=== PATIENT | female | born 1945 | race Caucasian/White ===

== ENCOUNTER 2018-01-25 13:19 | Emergency (ER) | payer MEDICARE, BC ==
[2018-01-25 14:14] VITALS: BP 148/87
--- NOTE | 2018-01-25 21:29 | UC ---
FLU HPI - HPI Summary HPI Summary: 72 y/o female w c/o 1 weeks of cough- constant, non productive, mild SANTIAGO, no ear pain, no recent Abx use, no lightheaded, dizziness, L sided throat pain, and sinus pressure. no fever, chills. no GI symptoms. - History of Current Complaint Chief Complaint: UCGeneralIllness Stated Complaint: STIFF NECK SORE THROAT Time Seen by Provider: 01/25/18 14:21 Hx Obtained From: Patient Hx Last Menstrual Period: N/A ?: No Onset/Duration: Sudden Onset, Lasting Days Severity Currently: Mild Severity Initially: Moderate Pain Intensity: 5 Pain Scale Used: 0-10 Numeric Associated Signs & Symptoms: Positive: Cough, Sore Throat, Nasal Congestion, Headache - Allergy/Home Medications Allergies/Adverse Reactions: Allergies Allergy/AdvReac Type Severity Reaction Status Date / Time lactose Allergy Diarrhea Verified 01/25/18 14:14 Penicillins Allergy Hives Verified 01/25/18 14:14 Sulfa (Sulfonamide Allergy GI Upset Verified 01/25/18 14:14 Antibiotics) PMH/Surg Hx/FS Hx/Imm Hx Previously Healthy: Yes - HTN, BP elevated today, will discuss with PCP - Surgical History Surgical History: Yes Surgery Procedure, Year, and Place: apendectomy, hysterectomy - Family History Known Family History: Negative: Seizure Disorder - Social History Alcohol Use: None Substance Use Type: None Smoking Status (MU): Never Smoked Tobacco - Immunization History Most Recent Tetanus Shot: unk Review of Systems Constitutional: Fatigue ENT: Sore Throat, Nasal Discharge, Sinus Congestion, Sinus Pain/Tenderness Respiratory: Cough Is Patient Immunocompromised?: No All Other Systems Reviewed And Are Negative: Yes Physical Exam Triage Information Reviewed: Yes Appearance: No Pain Distress, Well-Nourished, Ill-Appearing - mild Vital Signs: Initial Vital Signs Temp 97.8 F 01/25/18 14:11 Pulse 91 01/25/18 14:11 Resp 20 01/25/18 14:11 BP 148/87 01/25/18 14:11 Pulse Ox 98 01/25/18 14:11 Vital Signs Reviewed: Yes Eyes: Positive: Conjunctiva Clear ENT: Positive: Pharyngeal erythema - minimal, no exudates, Nasal congestion, TMs normal, Sinus tenderness - frontal, Uvula midline Neck: Positive: Supple, Nontender, Enlarged Nodes @ - submand, mild Respiratory: Positive: Chest non-tender, Lungs clear, Normal breath sounds, No respiratory distress, No accessory muscle use Cardiovascular: Positive: RRR Neurological Exam: Normal Psychological Exam: Normal Flu Course/Dx - Course Course Of Treatment: - Antibiotics as directed. Sinusitits. - increase fluid intake. - Increase rest. - follow up with primary physician within 2 days if no benefit. - GO to ER with increased headache, lightheadedness, increased pain. - Motrin/ ibuprofen as needed for neck pain, headache - Differential Dx/Diagnosis Differential Diagnosis/HQI/PQRI: Influenza Provider Diagnoses: sinusitis Discharge - Sign-Out/Discharge Documenting (check all that apply): Patient Departure All imaging exams completed and their final reports reviewed: No Studies - Discharge Plan Condition: Good Disposition: HOME Prescriptions: Azithromycin TAB* [Zithromax TAB (Z-UZIEL) 250 mg #6 tabs] 2 tab PO .TODAY, THEN 1 DAILY #1 uziel Patient Education Materials: Sinusitis (ED) Referrals: Ramiro Seymour DO [Primary Care Provider] - Additional Instructions: - Antibiotics as directed - increase fluid intake - Increase rest - follow up with primary physician within 2 days if no benefit - GO to ER with increased headache, lightheadedness, increased pain - Motrin/ ibuprofen as needed for neck pain, headache - Billing Disposition and Condition Condition: GOOD Disposition: Home - Attestation Statements Provider Attestation: I was available for consult. This patient was seen by the ELDA. The patient was not presented to, seen by, or examined by me. -Mireya
== END 2018-01-25 14:50 | disposition home or self-care (01) ==
LOC: UCEAST 13:19
DX: J32.9 Chronic sinusitis, unspecified (principal); Z88.0 Allergy status to penicillin; Z88.2 Allergy status to sulfonamides
CPT/HCPCS: 99212; G0463

== ENCOUNTER 2018-06-14 09:38 | Observation (INO) | payer MEDICARE ==
[2018-06-14] MEDS ORDERED: Aspirin 81 mg CHEW TAB* 81 MG TAB.CHEW PO ONE (09:47)
--- OUTSIDE RECORDS SUMMARY | 2018-06-14 09:49 | XMS REPORT | Continuity of Care Document ---
:1945 External Reference #:[id number] Author Name Alan James DO Address [address] [place] [address] Care Team Providers Name Role Phone Ramiro Seymour DO Care Team Information Activity Aid Unavailable Ramiro Seymour DO Primary Care Physician Unavailable Payers Date Identification Numbers Payment Provider Subscriber Policy Number: [id number] Medicare Ray Gray PayID: [id number] [facility] [address] [place] [address] Policy Number: [id number] [facility] Ray Gray PayID: [id number] [address] [address] [place] [address] Advance Directives Description No Information Available Problems Date Description Provider Status Onset: 04/02/2018 History of polyp of colon Laura Grissom PA-C Active Onset: 04/02/2018 Hemorrhage of rectum and anus Laura Grissom PA-C Active Onset: 04/02/2018 Tenderness of epigastrium Laura Grissom PA-C Active Onset: 04/02/2018 Gastro-esophageal reflux disease ASHOK Sharif Active with esophagitis Family History Description No Information Available Social History Type Date Description Comments Sex Unknown ETOH Use Drinks 1 Alcoholic Beverage Per Week Tobacco Use Start: Unknown Patient has never smoked Smoking Status Reviewed: 04/02/18 Patient has never smoked Allergies, Adverse Reactions, Alerts Date Description Reaction Status Severity Comments 11/24/2015 Penicillin Active 11/24/2015 Sulfa Antibiotics Active 11/24/2015 Lactose (Intolerance) Active Medications Medication Date Status Form Strength Qnty SIG Indications Ordering Provider Peg-3350/Electr 04/02/ Active Solution 236gm 4000m by mouth as K62.5 Alan olytes 2018 Rec l directed Erika, DO Amitriptyline 11/23/ Active Tablets 25mg 30tab Take One R10.13 Vicky HCL 2016 s Tablet By [place], Mouth AT [facility] Bedtime Fosamax 11/09/ Active Tablets 70mg Weekly Unknown 2015 Dexilant 11/09/ Active Capsules 60mg Twice Daily Unknown 2015 DR Rodrigues 11/09/ Active Tablets 10mcg See Unknown 2015 Instructions Patanol 11/09/ Active Solution 0.1% Every Day Unknown 2015 Ranitidine HCL 11/09/ Active Tablets 300mg Bedtime Unknown 2015 Restasis 11/09/ Active Emulsion 0.05% Twice Daily Unknown 2015 Colyte With 04/02/ Hx Solution 240gm 4000m by mouth as K62.5 Alan Flavor Packs 2018 - Rec l directed Erika, 2017 Sucralfate 11/23/ Hx Tablets 1gm 120ta 1 tab by R10.13 Vicky 2016 - bs mouth four [place], 04/02/ times a day [facility] 2018 before meals and at at bedtime Ciprofloxacin 11/09/ Hx Tablets 500mg 20tab Twice Daily Unknown HCL 2016 - s 2017 Flagyl 11/09/ Hx Tablets 500mg 30tab Three Times Unknown 2016 - s Daily 2017 Immunizations Description No Information Available Vital Signs Date Vital Result Comment 04/02/2018 10:13am Height 64 inches 5'4" Weight 196.00 lb BP Systolic 147 mmHg BP Diastolic 81 mmHg Heart Rate 100 /min BMI (Body Mass Index) 33.6 kg/m2 12/23/2015 1:02pm Height 64 inches 5'4" Weight 175.00 lb BP Systolic 132 mmHg BP Diastolic 82 mmHg Heart Rate 96 /min BMI (Body Mass Index) 30.0 kg/m2 11/24/2015 2:55pm Height 64 inches 5'4" Weight 177.00 lb BMI (Body Mass Index) 30.4 kg/m2 Results Test Date Facility Test Result H/L Range Note Laboratory test 05/22/2018 [facility] [place]ot[place] SEE RESULT 1, 2 finding BELOW Laboratory test 05/22/2018 [facility] Surgical SEE RESULT 3, 4 finding Pathology BELOW Laboratory 11/10/2015 N2N/CCD Import Absolute 0.1 10^3/ul 0-0.2 Studies Basophils (auto) Absolute Eosinophils (auto) 0.1 10^3/ul 0-0.6 Absolute Lymphocytes (auto) 1.5 10^3/ul 1.0-4.8 Absolute Monocytes (auto) 0.8 10^3/ul 0-0.8 Absolute Neutrophils (auto) 5.8 10^3/ul 1.5-7.7 Alanine Aminotransferase (Alt/SGPT) 17 U/L 7-52 Albumin 4.7 g/dL 3.2-5.2 Albumin/Globulin Ratio 1.6 1-3 Alkaline Phosphatase 80 U/L 34-104 Anion Gap 8 mmol/L 2-11 Aspartate Amino Transf (Ast/Sgot) 16 U/L 13-39 BUN/Creatinine Ratio 22.4 High 8-20 Basophils (%) (Auto) 0.9 % 0-2 Blood Urea Nitrogen 13 mg/dL 6-24 C-Reactive Protein 6.43 mg/L High 0-5.00 Calcium Level 9.3 mg/dL 8.6-10.3 Carbon Dioxide Level 26 mmol/L 22-32 Chloride Level 103 mmol/L 101-111 Creatinine 0.58 mg/dL 0.51-0.95 Eosinophils (%) (Auto) 1.1 % 0-6 Estimated GFR () 131.8 Estimated GFR (Non- 102.5 Globulin 2.9 g/dL 2-4 Glucose Level 95 mg/dL 70-100 Hematocrit 45 % 35-47 Hemoglobin 15.4 g/dL 12.0-16.0 Lactic Acid Level 0.9 mmol/L 0.5-2.0 Lipase 14 U/L 11.0-82.0 Lymphocytes (%) (Auto) 18.5 % Low 25-47 Mean Corpuscular Hemoglobin 30 pg 27-31 Mean Corpuscular Hemoglobin Concent 34 g/dL 31-36 Mean Corpuscular Volume 87 fL 80-97 Mean Platelet Volume 8 um3 7.4-10.4 Monocytes (%) (Auto) 9.6 % High 1-9 Neutrophils (%) (Auto) 69.9 % 38-83 Nucleated RBC Absolute Count (auto) 0 10^3/ul Nucleated Red Blood Cells % 0 Platelet Count 340 10^3/ul 150-450 Potassium Level 3.7 mmol/L 3.5-5.0 Red Blood Count 5.20 10^6/ul 4.0-5.4 Red Cell Distribution Width 14 % 10.5-15 Sodium Level 137 mmol/L 133-145 Total Bilirubin 0.50 mg/dL 0.2-1.0 Total Protein 7.6 g/dL 6.4-8.9 White Blood Count 8.3 10^3/ul 3.5-10.8 Laboratory Studies 11/10/2015 N2N/CCD Import Urine Specific 1.018 1.010- 1.030 [place] Urine pH 6.0 5-9 Xray 11/10/2015 [facility] [place] Abd/Pel W <pending> CBC W/Auto 11/02/2015 [facility] White Blood Count Ser <pending> Differential(!) Auto CNT RBC Red Blood Count <pending> Hemoglobin Blood <pending> Hematocrit <pending> MCV (Corpuscular Volume) <pending> MCH (Corpuscular Hemoglobin) <pending> MCHC (Corpuscular Hemog Conc) <pending> RDW <pending> Platelet Count Blood Auto CNT <pending> MPV <pending> Lymph% <pending> [place]% <pending> Neutrophil % <pending> Absolute Lymphocytes <pending> Absolute Monocytes <pending> Absolute Neutrophils <pending> CMP(!) 11/02/2015 [facility] Sodium(!) <pending> Potassium(!) <pending> Chloride Serum/Plasma(!) <pending> Carbon Dioxide Ser/Plasm(!) <pending> BUN - Urea Nitrogen(!) <pending> Calcium Ser/Plasma Mass/Vol(!) <pending> Creatinine Serum Mass/Vol(!) <pending> Glucose Serum(!) <pending> Uric Acid Ser/Plas Mass/Vol(!) <pending> BUN/Creatinine Ratio(!) <pending> Albumin Serum/Plasma(!) <pending> Alkaline Phosphatase(!) <pending> Bilirubin Total Mass/Vol(!) <pending> Ast - Sgot <pending> Alt - SGPT <pending> Protein Total <pending> Laboratory test 11/02/2015 [facility] Magnesium Ser/Plasma <pending> finding Mass/Vol TSH Thyroid Stim Hormone(!) <pending> Laboratory Studies 11/02/2015 N2N/CCD Import 25-Hydroxy Vitamin 16.4 ng/mL Low 30-50 D Total Folate 20.00 ng/mL Immunoglobulin A 169 mg/dL Magnesium Level 2.0 mg/dL 1.9-2.7 Thyroid Stimulating Hormone (TSH) 1.75 mcIU/mL 0.34-5.60 Vitamin B12 Level 437 pg/mL 180-914 Laboratory test 03/03/2015 [facility] Dermatopathology Report < pending> finding 1 [id number] SEE RESULT BELOW Name: RAY GRAY : [address]: Alan James DO Acct: [id number] Unit: [id number] AGE: 73 Location: [facility] Re05/22/18 SEX: F Status: DEP REF SPEC: [id number] ERIC: 05/22/18-[address] [facility] [address]: Alan James DO REQ: [id number] RECD: 05/22/18 STATUS: BLU WEBER DR: Ramiro Seymour DO _ SOURCE: GAS ANTRUM SPDESC: ORDERED: Kory COMMENTS: [id number] Procedure Result Reported Site Clotest Final 05/23/18- 0753 ML Clotest Negative * ML - Main Lab . END OF REPORT DEPARTMENT OF PATHOLOGY, [address] [place] [address] Mik Duckworth M.D. Director [facility] # [id number] SEE RESULT BELOW Name: RAY GRAY : [address]: Alan James DO Acct: [id number] Unit: [id number] AGE: 73 Location: [facility] Re05/22/18 SEX: F Status: DEP REF SPEC: [id number] ERIC: 05/22/18-[address] [facility] [address]: Alan James DO REQ: [id number] RECD: 05/22/18 STATUS: BLU WEBER DR: Ramiro Seymour DO _ SOURCE: GAS ANTRUM SPDES: ORDERED: Clotest COMMENTS: [id number] Procedure Result Reported Site Clotest Final 05/23/18- 0753 ML Clotest Negative * ML - Main Lab . END OF REPORT DEPARTMENT OF PATHOLOGY, [address] [place] [address] Mik Duckworth M.D. Director [facility] # [id number] SEE RESULT BELOW Name: RAY GRAY : [address]: Alan James DO Acct: [id number] Unit: [id number] AGE: 73 Location: [facility] Re05/22/18 SEX: F Status: DEP REF SPEC: [id number] ERIC: 05/22/18-[address]: Alan James DO REQ: [id number] RECD: 05/22/18 STATUS: ADRIEL WEBER DR: Ramiro Seymour DO _ ORDERED: LEVEL 4/3 COMMENTS: [id number] FINAL DIAGNOSIS 1. Esophagus, distal, biopsy: -- Benign squamous and columnar-type mucosa with chronic inflammation. -- Intestinal metaplasia is absent. -- Dysplasia is absent. 2. Colon, transverse, biopsy: -- Benign colonic mucosa with surface hyperplastic change. 3. Colon, sigmoid, biopsy: -- Tubular adenomas. -- No high grade dysplasia or malignancy. CLINICAL HISTORY Gastroesophageal reflux disease/ hematochezia POST-OPERATIVE DIAGNOSIS EGD: esophagus - gastroesophageal junction less than 1 cm variable biopsy; gastric - normal biopsy NOMAN test; duodenum - normal; colonoscopy: to cecum; good prep; 1 transverse cold snare; 3 sigmoid 2 x cold snare CONTINUED ON NEXT PAGE DEPARTMENT OF PATHOLOGY, [address] [place] [address] Mik Duckworth M.D. Director [facility] # [id number] RUN DATE: 05/23/18 [facility] LAB LIVE PAGE 2 Patient: RAY GRAY [id number] (Continued) GROSS DESCRIPTION (Continued) GROSS DESCRIPTION 1. The specimen is received in formalin labeled, Distal Esophagus Biopsies , and consists of two allen-white irregular soft tissue fragments measuring 0.4 x 0.2 x 0.1 cm and 0.7 x 0.2 x 0.1 cm which are submitted entirely in one cassette. 2. The specimen is received in formalin labeled, Biopsy Transverse Colon Polyp, and consists of a 0.8 by up to 0.3 x 0.1 cm allen irregular soft tissue fragment which is submitted entirely in one cassette. 3. The specimen is received in formalin labeled, Sigmoid Colon Polyps, and consists of three allen-pink polypoid soft tissue fragments aggregating 0.7 x 0.3 x 0.2 cm which are submitted entirely in one cassette. Signed by and Reported on: Emma Sparrow MD 05/23/18 1133 END OF REPORT DEPARTMENT OF PATHOLOGY, [address] [place] [address] Mik Duckworth M.D. Director [facility] # [id number] SEE RESULT BELOW Name: RAY GRAY : [address]: Alan James DO Acct: [id number] Unit: [id number] AGE: 73 Location: [facility] Re05/22/18 SEX: F Status: DEP REF SPEC: [id number] ERIC: 05/22/18-[address]: Alan James DO REQ: [id number] RECD: 05/22/182865 STATUS: ADRIEL WEBER DR: Ramiro Seymour DO _ ORDERED: LEVEL 4/3 COMMENTS: [id number] FINAL DIAGNOSIS 1. Esophagus, distal, biopsy: -- Benign squamous and columnar-type mucosa with chronic inflammation. -- Intestinal metaplasia is absent. -- Dysplasia is absent. 2. Colon, transverse, biopsy: -- Benign colonic mucosa with surface hyperplastic change. 3. Colon, sigmoid, biopsy: -- Tubular adenomas. -- No high grade dysplasia or malignancy. CLINICAL HISTORY Gastroesophageal reflux disease/ hematochezia POST-OPERATIVE DIAGNOSIS EGD: esophagus - gastroesophageal junction less than 1 cm variable biopsy; gastric - normal biopsy NOMAN test; duodenum - normal; colonoscopy: to cecum; good prep; 1 transverse cold snare; 3 sigmoid 2 x cold snare CONTINUED ON NEXT PAGE DEPARTMENT OF PATHOLOGY, [address] [place] [address] Mik Duckworth M.D. Director [facility] # [id number] RUN DATE: 05/23/18 [facility] LAB LIVE PAGE 2 Patient: RAY GRAY [id number] (Continued) GROSS DESCRIPTION (Continued) GROSS DESCRIPTION 1. The specimen is received in formalin labeled, Distal Esophagus Biopsies , and consists of two allen-white irregular soft tissue fragments measuring 0.4 x 0.2 x 0.1 cm and 0.7 x 0.2 x 0.1 cm which are submitted entirely in one cassette. 2. The specimen is received in formalin labeled, Biopsy Transverse Colon Polyp, and consists of a 0.8 by up to 0.3 x 0.1 cm allen irregular soft tissue fragment which is submitted entirely in one cassette. 3. The specimen is received in formalin labeled, Sigmoid Colon Polyps, and consists of three allen-pink polypoid soft tissue fragments aggregating 0.7 x 0.3 x 0.2 cm which are submitted entirely in one cassette. Signed by and Reported on: Emma Sparrow MD 05/23/18 1133 END OF REPORT DEPARTMENT OF PATHOLOGY, [address] [place] [address] Mik Duckworth M.D. 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 Reflux Plan of Treatment 04/02/2018 - MOHINDER Sharif-CK21.0 Gastro-esophageal reflux disease with peybxmwxrdxT98.9 Gastro-esophageal reflux disease without zquuijlajsmQ04.5 Hemorrhage of anus and rectumNew Medication:Peg-3350/Electrolytes 236 gm - by mouth as directedColyte With Flavor Packs 240 gm - by mouth as ebzvhezuE51.010 Personal history of colonic polyps
--- OUTSIDE RECORDS SUMMARY | 2018-06-14 09:49 | XMS REPORT | Continuity of Care Document ---
:1945 External Reference #:[id number] Author Name Alan James DO Address [address] [place] [address] Care Team Providers Name Role Phone Ramiro Seymour DO Care Team Information Rouge Presser Unavailable Ramiro Seymour DO Primary Care Physician Unavailable Payers Date Identification Numbers Payment Provider Subscriber Policy Number: [id number] Medicare Ray Gray PayID: [id number] [facility] [address] [place] [address] Policy Number: [id number] [facility] Ray Gray PayID: [id number] [address] [address] [place] [address] Advance Directives Description No Information Available Problems [...] R10.13 Vicky HCL 2016 s Tablet By [place], Mouth AT [facility] Bedtime Fosamax 11/09/ Active Tablets 70mg [...] R10.13 Vicky 2016 - bs mouth four [place], 04/02/ times a day [facility] 2018 before meals and at at [...] Result H/L Range Note Laboratory test 05/22/2018 [facility] Clotest SEE RESULT 1, 2 finding BELOW Laboratory test 05/22/2018 [facility] [place] Surgical SEE RESULT 3, 4 finding Pathology [...] N2N/CCD Import Urine Specific 1.018 1.010- 1.030 [place] Urine pH 6.0 5-9 Xray 11/10/2015 [facility] [place] CT Abd/Pel W <pending> CBC W/Auto 11/02/2015 [facility] White Blood Count Ser <pending> Differential(!) Auto CNT RBC Red Blood Count <pending> Hemoglobin Blood <pending> Hematocrit <pending> MCV (Corpuscular Volume) <pending> MCH (Corpuscular Hemoglobin) <pending> MCHC (Corpuscular Hemog Conc) <pending> RDW <pending> Platelet Count Blood Auto CNT <pending> MPV <pending> Lymph% <pending> [place]% <pending> Neutrophil % <pending> Absolute Lymphocytes <pending> [...] [facility] Dermat[facility] Report < pending> finding 1 [id number] SEE RESULT BELOW Name: RAY GRAY : [address]: Alan James DO Acct: [id number] Unit: [id number] AGE: 73 Location: [facility] Re05/22/18 SEX: F Status: DEP REF SPEC: [id number] ERIC: 05/22/18-[address] [facility] [address]: Alan James DO REQ: [id number] RECD: 05/22/18 STATUS: BLU WEBER DR: Ramiro Seymour DO _ SOURCE: GAS ANTRUM SPDESC: ORDERED: Kory COMMENTS: [id number] Procedure Result Reported Site Clotest Final 05/23/18- 0753 ML Clotest Negative * ML - Main Lab . END OF REPORT DEPARTMENT OF PATHOLOGY, [address] [place] [address] Mik Duckworth M.D. Director [facility] # [id number] SEE RESULT BELOW Name: RAY GRAY : [address]: Alan James DO Acct: [id number] Unit: [id number] AGE: 73 Location: [facility] Re05/22/18 SEX: F Status: DEP REF SPEC: [id number] ERIC: 05/22/18-[address] [facility] [address]: Alan James DO REQ: [id number] RECD: 05/22/18 STATUS: BLU WEBER DR: Ramiro Seymour DO _ SOURCE: GAS ANTRUM SPDES: ORDERED: Clotest COMMENTS: [id number] Procedure Result Reported Site Clotest Final 05/23/18- 0753 ML Clotest Negative * ML - Main Lab . END OF REPORT DEPARTMENT OF PATHOLOGY, [address] [place] [address] Mik Duckworth M.D. Director [facility] # [id number] SEE RESULT BELOW Name: RAY GRAY : [address]: Alan James DO Acct: [id number] Unit: [id number] AGE: 73 Location: [facility] Re05/22/18 SEX: F Status: DEP REF SPEC: [id number] ERIC: 05/22/18-[address]: Alan James DO REQ: [id number] RECD: 05/22/18 STATUS: ARDIEL WEBER DR: Ramiro Seymour DO _ ORDERED: LEVEL 4/3 COMMENTS: [id number] FINAL DIAGNOSIS 1. Esophagus, distal, biopsy: -- [...] CONTINUED ON NEXT PAGE DEPARTMENT OF PATHOLOGY, [address] [place] [address] Mik Duckworth M.D. Director [facility] # [id number] RUN DATE: 05/23/18 [facility] LAB LIVE PAGE 2 Patient: RAY GRAY [id number] (Continued) GROSS DESCRIPTION (Continued) GROSS DESCRIPTION 1. [...] 1133 END OF REPORT DEPARTMENT OF PATHOLOGY, [address] [place] [address] Mik Duckworth M.D. Director [facility] # [id number] SEE RESULT BELOW Name: RAY GRAY : [address]: Alan James DO Acct: [id number] Unit: [id number] AGE: 73 Location: [facility] Re05/22/18 SEX: F Status: DEP REF SPEC: [id number] ERIC: 05/22/18-[address]: Alan James DO REQ: [id number] RECD: 05/22/187943 STATUS: ADRIEL WEBER DR: Ramiro Seymour DO _ ORDERED: LEVEL 4/3 COMMENTS: [id number] FINAL DIAGNOSIS 1. Esophagus, distal, biopsy: -- [...] CONTINUED ON NEXT PAGE DEPARTMENT OF PATHOLOGY, [address] [place] [address] Mik Duckworth M.D. Director [facility] # [id number] RUN DATE: 05/23/18 [facility] LAB LIVE PAGE 2 Patient: RAY GRAY [id number] (Continued) GROSS DESCRIPTION (Continued) GROSS DESCRIPTION 1. [...] 1133 END OF REPORT DEPARTMENT OF PATHOLOGY, [address] [place] [address] Mik Duckworth M.D. 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 Reflux Plan of Treatment 04/02/2018 - MOHINDER Sharif-CK21.0 Gastro-esophageal reflux disease with nmdnkvqvhypP14.9 Gastro-esophageal reflux disease without orofugbnmlnL40.5 Hemorrhage of anus and rectumNew Medication:Peg-3350/Electrolytes 236 gm - by mouth as directedColyte With Flavor Packs 240 gm - by mouth as vnurkjqbG99.010 Personal history of colonic polyps
--- NOTE | 2018-06-14 09:59 | ED ---
HPI Chest Pain - HPI Summary HPI Summary: This pt is a 73 y/o female presenting to [facility] via EMS from home c/o palpitations and chest pressure today. Pt reports she was in the shower today when she felt her heart fluttering. She states that soon after she developed chest pressure, described like someone sitting on top of chest. Pt notes additionally her arm began to feel tingly and she began to feel lightheaded, and nauseous. She describes lightheadedness, like feeling of passing out. Currently she still has chest pressure, rated 5 or 6 out of 10 in severity and still feels lightheaded. Denies vomiting, diaphoresis, SOB. Pt was NOT given aspirin or nitroglycerin by EMS [employer]. She has never had this in the past. Denies any hx of cardiac disease. PMHx includes HTN. - History of Current Complaint Chief Complaint: EDChestPainROMI Time Seen by Provider: 06/14/18 09:46 Hx Obtained From: Patient Hx Last Menstrual Period: N/A Onset/Duration: Started Minutes Ago, Still Present Timing: Lasting Hours Current Severity: Moderate Pain Intensity: 6 Pain Scale Used: 0-10 Numeric Chest Pain Location: Diffuse Chest Pain Radiates: No Character: Pressure/Squeezing - Pressure Aggravating Factor(s): Nothing Alleviating Factor(s): Nothing Associated Signs and Symptoms: Positive: Chest Pain, Tingling, Lightheadedness, Nausea. Negative: Shortness of Breath, Fever, Chills, Diaphoresis, Vomiting - Allergy/Home Medications Allergies/Adverse Reactions: Allergies Allergy/AdvReac Type Severity Reaction Status Date / Time lactose Allergy Diarrhea Verified 03/26/18 12:19 Penicillins Allergy Hives Verified 03/26/18 12:19 Sulfa (Sulfonamide Allergy GI Upset Verified 03/26/18 12:19 Antibiotics) Home Medications: Home Medications Estradiol VAGINAL TAB(NF) [Vagifem] 10 vag.supp VAGINAL SEE INSTRUCTIONS [History Confirmed 06/14/18] PMH/Surg Hx/FS Hx/Imm Hx Cardiovascular History: Reports: Hx Hypertension GI History: Reports: Hx Gastroesophageal Reflux Disease History: Denies: Hx Kidney Stones, Hx Renal Disease - Surgical History Surgery Procedure, Year, and Place: apendectomy, hysterectomy Infectious Disease History: No Infectious Disease History: Denies: Traveled Outside the [place] in Last 30 Days - Family History Known Family History: Positive: Cardiac Disease - Father Family History: Mother with Alzheimer's - Social History Alcohol Use: None Substance Use Type: Reports: None Smoking Status (MU): Never Smoked Tobacco Have You Smoked in the Last Year: No Review of Systems Negative: Fever, Chills, Skin Diaphoresis Positive: Palpitations - fluttering, Chest Pain Negative: Shortness Of Breath Positive: Nausea. Negative: Vomiting Neurological: Other - POS: lightheadedness Positive: Paresthesia All Other Systems Reviewed And Are Negative: Yes Physical Exam - Summary Physical Exam Summary: VITAL SIGNS: Reviewed. GENERAL: Patient is a well-developed and nourished female who is lying comfortable in the stretcher. Patient is not in any acute respiratory distress. HEAD AND FACE: No signs of trauma. No ecchymosis, hematomas or skull depressions. No sinus tenderness. EYES: PERRLA, EOMI x 2, No injected conjunctiva, no nystagmus. EARS: Hearing grossly intact. Ear canals and tympanic membranes are within normal limits. MOUTH: Oropharynx within normal limits. NECK: Supple, trachea is midline, no adenopathy, no JVD, no carotid bruit, no c- spine tenderness, neck with full ROM. CHEST: Symmetric, no tenderness at palpation LUNGS: Clear to auscultation bilaterally. No wheezing or crackles. CVS: Regular rate and rhythm, S1 and S2 present, no murmurs or gallops appreciated. ABDOMEN: Soft, non-tender. No signs of distention. No rebound no guarding, and no masses palpated. Bowel sounds are normal. EXTREMITIES: FROM in all major joints, no edema, no cyanosis or clubbing. NEURO: Alert and oriented x 3. No acute neurological deficits. Speech is normal and follows commands. SKIN: Dry and warm Triage Information Reviewed: Yes Vital Signs On Initial Exam: Initial Vitals Temp Pulse Resp BP Pulse Ox 98.4 F 90 16 117/93 97 06/14/18 09:46 06/14/18 09:46 06/14/18 09:46 06/14/18 09:46 06/14/18 09:46 Vital Signs Reviewed: Yes Diagnostics - Vital Signs Vital Signs Temp Pulse Resp BP Pulse Ox 06/14/18 09:46 98.4 F 90 16 117/93 97 - Laboratory Result Diagrams: 06/14/18 09:55 06/14/18 09:55 Lab Statement: Any lab studies that have been ordered have been reviewed, and results considered in the medical decision making process. - Radiology Chest XR Radiology Interpretation Completed By: Radiologist Summary of Radiographic Findings: IMPRESSION: No active cardiopulmonary disease is noted. Dr. Hough has reviewed this report. - EKG 09:58 Cardiac Rate: NL - at 91 bpm EKG Rhythm: Sinus Rhythm Summary of EKG Findings: No ST elevation. Q waves in leads III and aVF. Inverted T waves in aVL. Re-Evaluation - Re-Evaluation First Eval Re-Evaluation Time: 11:15 Comment: I reviewed the labs and XR results with pt. We discussed the admission plan. Chest Pain Course/Dx - Course Assessment/Plan: Patient is a 73-year-old female who presents to the emergency department with chest pressure. She reports that she feels like somebody is sitting on top of her. Patient has past medical history for hypertension, dyslipidemia and prediabetes. Test results without any significant abnormality. Chest x-ray shows no acute pathology. EKG shows a normal sinus rhythm at 91 beats per minutes with Q waves in III and aVF similar to previous EKG. Patients heart score is moderate. Therefore I discussed my physical exam , findings and test results with Dr. Sánchez from the hospitalist services who accepted the patient for admission. At this point the patient is hemodynamically stable, alert and oriented 3. - Chest Pain Differential Diagnosis/HQI/PQRI: Acute MN, ACS, Angina, CHF, Chest Wall, GI Disease, Lower Respiratory Infection - Diagnoses Provider Diagnoses: Angina pectoris - Provider Notifications Discussed Care Of Patient With: Megan Sánchez - hospitalist Time Discussed With Above Provider: 11:06 Instructed by Provider To: Admit As Inpatient Discharge - Sign-Out/Discharge Documenting (check all that apply): Patient Departure - Admit to [facility] Patient Received Moderate/Deep Sedation with Procedure: No - Discharge Plan Condition: Stable Disposition: ADMITTED TO [facility] - Billing Disposition and Condition Condition: STABLE Disposition: Admitted to [facility] - Attestation Statements Document Initiated by Scribe: Yes Documenting Scribe: Mikayla Lebron Provider For Whom Scribe is Documenting (Include Credential): Jian Hough MD Scribe Attestation: I, Mikayla Lebron, scribed for Jian Hough MD on 06/14/18 at 1758. Scribe Documentation Reviewed: Yes Provider Attestation: The documentation as recorded by the scribeMikayla accurately reflects the service I personally performed and the decisions made by me, Jian Hough MD Status of Scribe Document: Viewed
[2018-06-14 10:07] LABS: ABS Basophils 0.1 10^3/ul (0-0.2); ABS Eosinophils 0.1 10^3/ul (0-0.6); ABS Lymphocytes 1.1 10^3/ul (1.0-4.8); ABS Monocytes 0.8 10^3/ul (0-0.8); ABS Neutrophils 6.7 10^3/ul (1.5-7.7); ABS Nucleated RBC 0 10^3/ul; Eosinophil % 1.1 %; Hematocrit 47 % (35-47); Lymphocyte % 12.6 %; Mean Corpuscular HGB Conc 34 g/dl (31-36); Mean Corpuscular Hemoglobin 30 pg (27-31); Mean Corpuscular Volume 87 fL (80-97); Mean Platelet Volume 7.7 fL (7.4-10.4); Nucleated Red Blood Cells % 0.1; Platelet Count 333 10^3/ul (150-450); Red Blood Count 5.38 10^6/ul (4.00-5.40); Red Cell Distribution Width 13 % (10.5-15); White Blood Count 8.8 10^3/ul (3.5-10.8)
[2018-06-14 10:18] LABS: Activated Partial Thrombo Time 33.2 seconds (26.0-36.3); INR 0.96 (0.77-1.02)
[2018-06-14 10:26] LABS: Albumin 4.8 g/dL (3.2-5.2); Albumin/Globulin Ratio 1.7 (1-3); BUN/Creatinine Ratio 18.6 (8-20); Calcium 9.9 mg/dL (8.6-10.3); EGFR Non-African American 81.8 (>60); Globulin 2.8 g/dL (2-4); Potassium 3.8 mmol/L (3.5-5.0); Total Bilirubin 0.5 mg/dL (0.2-1.0); Total Protein 7.6 g/dL (6.4-8.9)
[2018-06-14 10:28] LABS: CKMB ng/mL 1.7 ng/mL (0.6-6.3)
[2018-06-14 11:03] LABS: TSH (Thyroid Stimulating Horm) 1.9 mcIU/mL (0.34-5.60)
[2018-06-14] MEDS ORDERED: Ondansetron INJ* 2 MG/ML VIAL IV PRN (11:43)
[2018-06-14] MEDS ORDERED: Acetaminophen TAB* 325 MG PO PRN (11:43)
[2018-06-14] MEDS ORDERED: Al Hydrox/Mg Hydrox/Simet LIQ* 30 ML UDC PO PRN (11:43)
[2018-06-14] MEDS ORDERED: Calcium Carbonate CHEW TAB* 500 MG (TUMS) PO PRN (11:50)
[2018-06-14] MEDS: Enoxaparin(*) 40 MG/0.4 ML SYR SUBCUT SCH (12:36)
--- NOTE | 2018-06-14 16:58 | HP ---
CC: Dr. Ramiro Seymour * HISTORY AND PHYSICAL: DATE OF ADMISSION: 06/14/18 PRIMARY CARE PROVIDER: Dr. Ramiro Seymour. ATTENDING PHYSICIAN: Dr. Megan Sánchez * (dictated by Daniella Cuenca NP). PRIMARY DIAGNOSES: 1. Chest pain. 2. Palpitations. HISTORY OF PRESENT ILLNESS: Ms. Gray is a 73-year-old female with a past medical history of hypertension and GERD who presents to the emergency room today with complaints of chest pain and palpitations. The patient reports that she spent the night at her daughter's house last night and returned home this morning around 8 o'clock, she took a shower. She had not had anything to eat prior to the shower and had only a couple sips of soda. While in the shower, she began to feel palpitations, which she describes as a "butterflies" in the middle of her chest. During this time, she reported some left arm tingling, lightheadedness, and nausea. The palpitations resolved after a few minutes and she then developed a chest pain, which she describes as "heaviness" and feeling like someone was sitting on her chest. She rated this pain 5/10. The chest pain was quite distressing to her and she called the EMS and was brought to the emergency room. The patient denies any cardiac history except for hypertension. Her son does report that approximately 10 years ago she had chest pain and was hospitalized in [place]. During that time, she reportedly had a stress test, which the patient states was normal, though she states that they were not able to get her heart rate high enough to properly complete the test. Ultimately, she was diagnosed with GERD as the cause of that episode of chest pain. The patient reports that her GERD symptoms are well managed on her current medications and she rarely gets any episodes of heartburn, though she states that these palpitations and pressure were much different that her typical episodes of heartburn. In the emergency room, the patient's vital signs were stable. She had lab work which was unremarkable including a troponin of 0.00. She had an EKG which did not show any acute changes. Because of the patient's symptoms and history, the hospitalist service was asked to evaluate for admission. PAST MEDICAL HISTORY: 1. Hypertension. 2. Hyperlipidemia. 3. GERD. PAST SURGICAL HISTORY: 1. Appendectomy. 2. Hysterectomy. HOME MEDICATIONS: 1. Fosamax 70 mg p.o. weekly. 2. Restasis 0.05% 1 drop both eyes b.i.d. 3. Dexlansoprazole 60 mg p.o. b.i.d. 4. Estradiol vaginal tab 10 mg suppository as instructed. 5. Patanol 0.1% 1 drop both eyes daily. 6. Ranitidine 300 mg p.o. at bedtime. ALLERGIES: PENICILLIN, SULFA, and LACTOSE. FAMILY HISTORY: The patient reports that her mother at 84 due to complications from Alzheimer's. She reports a strong family history of heart disease on her father's side. Her father passed way of an IN at 87. Her paternal grandfather of an IN at 94, and the patient's brother of an IN at the of 56. SOCIAL HISTORY: The patient denies any tobacco or recreational drug use. She reports consuming few alcoholic drinks per week. 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 The patient's daughter, Charissa, will be her surrogate decision maker in the event she is unable to maker her own decisions. REVIEW OF SYSTEMS: An 11-point review of systems was performed and all the pertinent positive and negative findings are in the HPI. All other systems are negative. PHYSICAL EXAMINATION GENERAL: Ms. Gray is a well-developed, well-nourished overweight white woman sitting up in bed, in no acute distress. She appears her stated age. VITAL SIGNS: Temp 98.4, heart rate 92, respiratory rate 28, oxygen saturation 92% on room air, blood pressure 126/87. HEENT: Head is atraumatic, normocephalic. Visual petty grossly intact. Pupils equal, round, and reactive to light and accommodation. Extraocular movements intact. Oral mucous membranes moist and without lesions. NECK: Full range of motion. Thyroid not palpable. Trachea at midline. No lymphadenopathy. RESPIRATORY: Symmetrical chest expansion. No chest wall deformities. Lungs clear to auscultations throughout. No rhonchi, wheezes, or rubs. CARDIOVASCULAR: Regular rate and rhythm. S1, S2 present. No murmurs, rubs, or gallops. No JVD. Chest pain is nonreproducible. ABDOMEN: Soft, tender to palpation. Bowel sounds normoactive throughout. EXTREMITIES: Skin warm and smooth bilaterally. No edema. No clubbing or cyanosis. Pedal pulses 2+ bilaterally. MUSCULOSKELETAL: Full range of motion. No pain or deformity. NEUROLOGIC: Awake, alert, oriented x4. Cranial nerves II through XII are grossly intact. Moves all extremities. SKIN: Grossly intact without lesions. DIAGNOSTIC STUDIES AND LABORATORY DATA: WBC 8.8, RBC 5.38, hemoglobin 16.0, hematocrit 47, platelets 333. INR 0.96. Sodium 140, potassium 3.8, chloride 106, carbon dioxide 25, BUN 13, creatinine 0.70, glucose 121, lactic acid 1.5, magnesium 2.0. CPK 95, CK-MB 1.7, troponin 0.00, BNP 10. TSH 1.9. Chest x-ray read as no active cardiopulmonary disease. EKG shows normal sinus rhythm with a rate of 91, QTc 471, Q waves present in 3 and aVF. This is consistent with a previous EKG from 2011. No acute changes. ASSESSMENT AND PLAN: Ms. Gray is a 73-year-old female with a past medical history of hypertension and gastroesophageal reflux disease who presents to the emergency room today with complaints of chest pain. The patient will be admitted observation for: 1. Chest pain, rule out acute coronary syndrome. The patient is still having some mild pressure at this point, though is not in any sort of distress. She does have BEVERLY score of 2, so will be admitted due to her persistent pain. We will request records from her previous stress test in [place]. We will repeat 2 additional troponins and EKGs; with those troponins, I will also recheck an EKG in the morning. We will plan on doing a nuclear stress test in the morning and she will be n.p.o. after midnight. 2. Palpitations. The cause of the patient's symptoms are not clear, though I think it certainly is possible that her palpitations could have represented an arrhythmia such as atrial fibrillation, atrial flutter, or supraventricular tachycardia. She has had no further palpations since this morning, so at this time, we will monitor her on telemetry to see if we can catch any arrhythmia. 3. Hypertension. The patient's blood pressure in the emergency room is under good control. She is not on any outpatient medication and we will continue to monitor her vitals. 4. Hyperlipidemia. The patient reports that her cholesterol is quite high. I will check a lipid panel. She reports that she has been unable to tolerate cholesterol medications in the past and has tried multiple medications under the care of her primary. I will defer further management to her PCP. 5. Gastroesophageal reflux disease. I will continue famotidine and pantoprazole. 6. Fluids, electrolytes, nutrition. The patient does not require any fluid resuscitation or electrolyte repletion at this time. At this point, I have ordered her a heart healthy diet, though she will be n.p.o. after midnight pending a stress test. 7. Code status. The patient will be a full code. 8. DVT prophylaxis. According to the DVT Risk Assessment, the patient scores a 3 putting her at high risk. I have ordered Lovenox. TIME SPENT: Approximately 60 minutes were spent on this admission, greater than half of that time spent [id number] with the patient and her son obtaining my history, performing my physical exam, and reviewing the plan of care. This case has been reviewed with my attending, Dr. Sánchez, who is in agreement with the plan of care. DANIELLA CUENCA NP [id number]/[facility] #: [id number] KELLI
[2018-06-14] MEDS: Pantoprazole TAB * 40 MG TAB PO SCH (20:59)
[2018-06-14] MEDS ORDERED: Famotidine TAB* 20 MG PO SCH (21:00)
[2018-06-14] MEDS ORDERED: Lisinopril TAB* 10 MG PO SCH (22:00)
[2018-06-14] MEDS ORDERED: Amitriptyline TAB* 10 MG PO SCH (22:00)
[2018-06-14] MEDS ORDERED: hydrOXYzine HCL TAB* 25 MG PO SCH (22:00)
[2018-06-15 07:00] LABS: ABS Basophils 0.1 10^3/ul (0-0.2); ABS Eosinophils 0.2 10^3/ul (0-0.6); ABS Lymphocytes 1.7 10^3/ul (1.0-4.8); ABS Monocytes 0.7 10^3/ul (0-0.8); ABS Neutrophils 4.6 10^3/ul (1.5-7.7); ABS Nucleated RBC 0 10^3/ul; Hematocrit 45 % (35-47); Hemoglobin 15.1 g/dl (12.0-16.0); Lymphocyte % 23.5 %; Mean Corpuscular HGB Conc 34 g/dl (31-36); Mean Corpuscular Hemoglobin 30 pg (27-31); Mean Corpuscular Volume 87 fL (80-97); Mean Platelet Volume 7.9 fL (7.4-10.4); Nucleated Red Blood Cells % 0.3; Platelet Count 335 10^3/ul (150-450); Red Blood Count 5.14 10^6/ul (4.00-5.40); Red Cell Distribution Width 13 % (10.5-15); White Blood Count 7.4 10^3/ul (3.5-10.8)
[2018-06-15 07:06] LABS: BUN/Creatinine Ratio 24.2 (8-20); Calcium 9.3 mg/dL (8.6-10.3); EGFR African American 105.9 (>60); EGFR Non-African American 87.5 (>60); Potassium 4.1 mmol/L (3.5-5.0)
[2018-06-15] MEDS ORDERED: Regadenoson* 0.4 MG/5 ML SYRINGE ONE (07:49)
[2018-06-15] MEDS ORDERED: Aminophylline IV* 25 MG/ML 10 ML VIAL ONE (08:11)
[2018-06-15] MEDS: Pantoprazole TAB * 40 MG TAB PO SCH (09:00)
[2018-06-15 12:16] LABS: HDL Cholesterol 47.5 mg/dL
[2018-06-15] MEDS: Enoxaparin(*) 40 MG/0.4 ML SYR SUBCUT SCH (12:53)
[2018-06-15 16:02] VITALS: BP 113/59
--- NOTE | 2018-06-15 22:10 | DS ---
CC: Dr. Ramiro Seymour * DISCHARGE SUMMARY: DATE OF ADMISSION: 06/14/18 DATE OF DISCHARGE: 06/15/18 PRIMARY CARE PHYSICIAN: Dr. Ramiro Seymour. PROVIDER: Randy Law NP. ATTENDING PHYSICIAN: Dr. Gaston Hannah * (dictated by Randy Law NP) . PRIMARY DISCHARGE DIAGNOSES: 1. Chest pain. 2. Palpitations. SECONDARY DISCHARGE DIAGNOSES: 1. Hypertension. 2. Hyperlipidemia. 3. Gastroesophageal reflux disease. HOME MEDICATIONS AT DISCHARGE: There are no changes. 1. Quinapril 40 mg at bedtime. 2. Hydroxyzine 25 mg at bedtime. 3. Amlodipine 10 mg at bedtime. 4. Amitriptyline 10 mg at bedtime. 5. Estradiol, use as instructed. 6. Olopatadine 0.1% ophthalmic solution 1 drop to both eyes daily. 7. Alendronate 70 mg weekly. 8. Dexlansoprazole 60 mg b.i.d. 9. Restasis 0.05% eyedrops, 1 drop to both eyes b.i.d. 10. Ranitidine 300 mg at bedtime. HOSPITAL COURSE OF STAY: For full details, please refer to the H and P provided by Daniella Cuenca on 06/14/18. In summary, this is a 73-year-old female who presented to the ER with concern for chest pain and palpitations that started the morning of the admitting date. She described a feeling of butterflies in the middle of her chest as well as left arm tingling, lightheadedness, and nausea. The palpitations resolved after a few minutes and then developed into chest pain that feel like heaviness, and she called EMS and was transported for evaluation in the emergency room. She was brought in for observation overnight, as her BEVERLY score of 2. She was monitored on telemetry. There were no alarms or signs of ectopy or arrhythmias during her hospitalization. She had an elevated second troponin of 0.05, but then her following troponin was 0.00. It was unclear if this was a lab error. In any event, she did have a nuclear stress test on the morning of 06/15/18. There was no definitive ischemia seen by EKG criteria on her exercise portion of the stress test. The nuclear medicine scan was deemed low risk with normal motion with normal wall thickening and no fixed or reversible perfusion defects. She denied chest pain on 06/15/18. She has denied any further complaints of palpitations. Review of her labs, I did add on a lipid profile which seems consistent with her previous diagnosis of hyperlipidemia. She states that she has had an intolerance to previous cholesterol medications. She was recommended to follow up with her primary care provider, but her numbers do seem stable with a slight reduction in her triglycerides and cholesterol from her October lab. Again, prior to discharge, she denied any chest discomfort. She denies any further palpitations. She may benefit from a further evaluation and workup in the official setting such as a Holter monitor if palpitations continue to be a concern. Her EKGs were reviewed and appear to be consistent with previous EKGs , with no significant changes noted. PHYSICAL EXAMINATION: General: This is a very pleasant older female, seen lying in bed, in no acute distress. She appears her stated age. Vital signs: Temperature 97.6, pulse rate 84, respiratory rate 16, blood pressure 120/63, and O2 saturation is 95% on room air. HEENT: Head is atraumatic/ normocephalic. Pupils are equal and round. Extraocular movements are intact. Oral mucosa is moist. Neck is supple. No lymphadenopathy appreciated. No JVD noted. Respiratory: Lungs are clear to auscultation throughout. Cardiac: Regular rate and rhythm with normal S1 and S2 heart sounds. No murmurs, rubs, or gallops appreciated. There was no peripheral edema. Abdomen: Soft, nontender, nondistended with normoactive bowel sounds. Extremities: No clubbing or cyanosis. Musculoskeletal: Full range of motion. Neuro: She is alert and oriented x4 with no focal deficits. Speech is clear. Cranial nerves II through XII are grossly intact. OUTPATIENT FOLLOWUP NEEDS: She should follow up with her primary care provider as previously stated, recommend within the next 7 to 10 days. Again, she should continue to address possibilities for helping to manage her hyperlipidemia, although she has apparently failed previous medications ( statins "and other meds") in the past. DIET: Heart-healthy diet. ACTIVITY: As tolerated. CONDITION: Stable. DISCHARGE DISPOSITION: To home. TIME SPENT: Approximately 35 minutes. Again, this is only a brief summary of the patient's hospital course of stay. For full details, please refer to the full medical record. If there are any further questions or need any further assistance, please feel free to contact me at [phone]. RANDY LAW NP [id number]/[facility] #: [id number] KELLI
== END 2018-06-15 17:19 | disposition home or self-care (01) ==
LOC: ED 09:38 → MEDTELE 11:43
PROVIDERS: ADMIT Internal Medicine; ATTEND Student in an Organized Health Care Education/Training Program
DX: R07.9 Chest pain, unspecified (principal); R00.2 Palpitations; I10 Essential (primary) hypertension; E78.5 Hyperlipidemia, unspecified; K21.9 Gastro-esophageal reflux disease without esophagitis; Z88.0 Allergy status to penicillin; Z88.2 Allergy status to sulfonamides
CPT/HCPCS: 36415; 71045; 78452; 80048; 80053; 80061; 82550; 82553; 83605; 83735; 83880; 84443; 84484; 85025; 85610; 85730; 93005; 93017; 96372; 96374; 99284; A9270-GY; A9502; G0378; J0280; J1650; J2785

== ENCOUNTER 2018-08-10 06:59 | Inpatient (IN) | payer MEDICARE ==
[~2018-08-10 06:59] MED LIST: Buffered Lidocaine 1% SYRIN* 1 ML/SYRINGE INTRADERM ONE; Bupivacaine 0.25% EPI 200,000* 30 ML SDV ONE; Clindamycin 900 MG IVPREMIX(* 900 MG/50 ML SDV IV ONE; Lactated Ringers 1000 ML Bag* 1,000 ML IV SCH; Tranexamic Acid 1,000 MG in NS 0.9% 50 ML* (outpatient use) IV SCH
--- OUTSIDE RECORDS SUMMARY | 2018-08-10 07:01 | XMS REPORT | Continuity of Care Document ---
:1945 External Reference #:[id number] Author Name Richa Perez Care Team Providers Name Role Phone Ramiro Seymour DO Primary Care Physician Unavailable Payers Date Identification Numbers Payment Provider Subscriber Effective: 2018 Policy Number: [id number] [employer] Judy A Strobel PayID: [id number] [address] [place] [address] Expires: 2018 Policy Number: [id number] Medicare Sol A Isaac PayID: [id number] [address] [place] [address] Effective: 2016 Policy Number: [id number] [facility] Sol Gray Expires: 2018 PayID: [id number] [address] [address] ZEY[place] Sykes [address] Advance Directives Description No Information Available Problems Active Problems Provider Date Localized, primary osteoarthritis Joe Couch MD Onset: 08/02/2018 Family History Date Family Member(s) Observation Comments General Diabetes General Heart Disease General Hypertension General Stroke General Cancer Mother Hypertension Social History Type Date Description Comments Sex Unknown Lives With Alone Occupation Retired ETOH Use Denies alcohol use Tobacco Use Start: Unknown Patient has never smoked Smoking Status Reviewed: 08/02/18 Patient has never smoked Exercise Type/Frequency Exercises sporadically Allergies, Adverse Reactions, Alerts Active Allergies Reaction Severity Comments Date Penicillin 09/12/2017 Medications Active Medications SIG Qnty Indications Ordering Date Provider Quinapril HCL Take One Tablet By Unknown 40mg Mouth Every Day For Tablets Blood Pressure Ranitidine HCL Take One Tablet By Unknown 300mg Mouth AT Bedtime Tablets Amlodipine Besylate Take One Tablet By Unknown 10mg Mouth Every Day For Tablets High Blood Pressure Amitriptyline HCL 2 at bed Unknown 10mg Tablets Dexilant 1 by mouth every Unknown 60mg Capsules DR day Vagifem insert 1 tablet Unknown 10mcg Tablets vaginally twice a week Fluticasone Propionate Inhale 2 Sprays Unknown Into Each Nostril 50mcg/Act Suspension Every Day For Nasal Congestion Rinse Mouth After Use as Needed History Medications Fluorouracil Apply Topically Once Unknown - 08/01/2018 5% Cream Daily For 2 Weeks To Nose Cheeks Upper Lip Forehe Medications Administered in Office Medication SIG Qnty Indications Ordering Provider Date Synvisc Or Synvisc-One Joe Couch MD 05/07/2018 Injection 1 MG Injection Synvisc Or Synvisc-One Joe Couch MD 04/30/2018 Injection 1 MG Injection Synvisc Or Synvisc-One Joe Couch MD 04/23/2018 Injection 1 MG Injection Depomedrol 40MG ERICKSON Garcia 03/06/2018 Injection Depomedrol 40MG Joe Couch MD 09/12/2017 Injection Immunizations Description No Information Available Vital Signs Date Vital Result Comment 08/02/2018 9:43am Height 63.5 inches 5'3.50" Weight 193.00 lb Heart Rate 78 /min BP Systolic 116 mmHg BP Diastolic 72 mmHg Respiratory Rate 14 /min Pain Level 0 BMI (Body Mass Index) 33.6 kg/m2 07/03/2018 10:20am Height 63.5 inches 5'3.50" Weight 193.00 lb BP Systolic 120 mmHg BP Diastolic 80 mmHg Pain Level 4 BMI (Body Mass Index) 33.6 kg/m2 05/07/2018 1:33pm Height 63.5 inches 5'3.50" Weight 185.00 lb BP Systolic 136 mmHg BP Diastolic 88 mmHg Body Temperature 97.6 F BMI (Body Mass Index) 32.3 kg/m2 04/30/2018 2:33pm Height 63.5 inches 5'3.50" Weight 185.00 lb BP Systolic 126 mmHg BP Diastolic 84 mmHg Body Temperature 97.8 F BMI (Body Mass Index) 32.3 kg/m2 04/23/2018 1:41pm Height 63 inches 5'3" Heart Rate 100 /min BP Systolic 130 mmHg BP Diastolic 82 mmHg Respiratory Rate 18 /min Body Temperature 98.0 F Pain Level 5 03/06/2018 11:13am Height 63 inches 5'3" Weight 185.00 lb Heart Rate 97 /min BP Systolic 132 mmHg BP Diastolic 84 mmHg Body Temperature 98.2 F Pain Level 7 BMI (Body Mass Index) 32.8 kg/m2 09/12/2017 11:39am Height 63 inches 5'3" Weight 192.00 lb BP Systolic Sitting 158 mmHg BP Diastolic Sitting 90 mmHg Respiratory Rate 16 /min Body Temperature 97.7 F Pain Level 7 BMI (Body Mass Index) 34.0 kg/m2 Results Description No Information Available Procedures Date Code Description Status 06/15/2018 15388 Treadmill Interp/Report Only Completed 06/15/2018 70514 Stress Test Supervsn W/Out I/R Completed 06/14/2018 56715 EKG, Interpretation Only Completed 05/07/2018 36645 Inject/Drain Joint/Bursa Major W/O US Completed 04/30/2018 37173 Inject/Drain Joint/Bursa Major W/O US Completed 04/23/2018 93594 Inject/Drain Joint/Bursa Major W/O US Completed 03/06/2018 17286 Inject/Drain Joint/Bursa Major W/O US Completed 09/12/2017 22249 Inject/Drain Joint/Bursa Major W/O US Completed 12/15/2016 77057 Destruction ALL Benign Or Premalignant Lesion (Other Than Completed [place] Encounters Type Date Location Provider Dx Diagnosis Office Visit 07/03/2018 [facility]opedic Joe Buchanan M25.562 Pain in left knee 9:45a [facility] Jimmy Couch MD M17.12 Unilateral primary osteoarthritis, left knee Office Visit 06/15/2018 [facility] Ruma R07.9 Chest pain, 11:32a 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 knee M25.562 Pain in left knee Office Visit 09/12/2017 Orthopedic Joe Buchanan M17.12 Unilateral primary 11:15a [facility] MD [place]za osteoarthritis, left [facility] knee Office Visit 12/15/2016 [facility] Dermatology Jonny Cesar, L82.1 Other seborrheic 2:00p keratosis D22.72 Melanocytic nevi of left lower limb, including hip L57.0 Actinic keratosis Plan of Treatment Future Appointment(s):08/10/2018 7:30 am - Yordan Persaud PA-C at [facility]08/10/2018 7:30 am - Joe Couch MD at [facility]08/02/2018 - Joe Couch, MDM17.12 Unilateral primary osteoarthritis, left kneeNew Therapy:Physical TherapyFollow up:Follow up: 10 days post-op
[2018-08-10] MEDS ORDERED: Bupivacaine 0.5% SDV PF* 30ML VIAL ONE ×2 (08:17→09:43)
[2018-08-10] MEDS ORDERED: fentaNYL* 50 MCG/ML 2 ML VIAL (100 MCG VIAL) ONE ×2 (08:28→12:25)
[2018-08-10] MEDS ORDERED: Midazolam* 1 MG/ML 5 ML VIAL (5 MG) ONE (08:29)
[2018-08-10] MEDS ORDERED: ROPIVACAINE 5 MG/ML 30 ML BTL (0.5%) ONE (08:38)
[2018-08-10] MEDS ORDERED: Mineral Oil Sterile, TOPICAL* 25 ML BTL ONE (09:38)
[2018-08-10] MEDS ORDERED: Propofol* 10 MG/ML 20 ML BTL ONE ×2 (09:43→10:44)
[2018-08-10] MEDS ORDERED: Phenylephrine 40 MCG/ML SYRINGE ONE (09:46)
[2018-08-10] MEDS ORDERED: Acetaminophen TAB* 325 MG PO PRN ×2 (09:59→12:03)
[2018-08-10] MEDS ORDERED: Naloxone* 0.4 MG/ML 1 ML VIAL IV PRN (09:59)
[2018-08-10] MEDS ORDERED: Olopatadine 0.1% OPHTH (NF) 1 DROP BTL BOTH EYES PRN (11:59)
[2018-08-10] MEDS ORDERED: Ondansetron INJ* 2 MG/ML VIAL IV PRN (12:03)
[2018-08-10] MEDS ORDERED: diPHENhydraMINE IV* 50 MG/ML 1 ml VIAL (BENADRYL) IV PRN (12:03)
[2018-08-10] MEDS ORDERED: Cyclobenzaprine TAB* 10 MG PO PRN (12:03)
[2018-08-10] MEDS ORDERED: Bisacodyl SUPP* 10 MG SUPP PR PRN (12:03)
[2018-08-10] MEDS ORDERED: Magnesium Hydroxide LIQ* 30 ML UDC PO PRN (12:03)
[2018-08-10] MEDS: fentaNYL* 50 MCG/ML 2 ML VIAL (100 MCG VIAL) IV PRN ×4 (12:26→13:19)
[2018-08-10] MEDS ORDERED: oxyCODONE/Acetamin 5/325 MG* TAB ONE ×3 (12:44→17:04)
[2018-08-10] MEDS: oxyCODONE/Acetamin 5/325 MG* TAB PO PRN ×2 (12:46→17:08)
[2018-08-10] MEDS ORDERED: HYDROmorphone INJ1* 1 MG/ML SYRINGE ONE ×2 (13:25→14:15)
[2018-08-10] MEDS: HYDROmorphone INJ1* 1 MG/ML SYRINGE IV PRN ×8 (13:25→15:31)
[2018-08-10] MEDS: Lactated Ringers 1000 ML Bag* 1,000 ML IV SCH (16:47)
[2018-08-10] MEDS: Clindamycin 600 MG IVPREMIX(* 600 MG/50 ML SDV IV SCH (18:38)
[2018-08-10] MEDS ORDERED: Lisinopril TAB* 10 MG ONE (18:55)
[2018-08-10] MEDS ORDERED: amLODIPine TAB* 5 MG ONE (18:56)
[2018-08-10] MEDS: Lisinopril TAB* 10 MG PO SCH (18:59)
[2018-08-10] MEDS: amLODIPine TAB* 5 MG PO SCH (18:59)
[2018-08-10] MEDS: oxyCODONE TAB* 5 MG TAB PO PRN (20:33)
[2018-08-10] MEDS: Amitriptyline TAB* 10 MG PO SCH (20:34)
[2018-08-10] MEDS: Famotidine TAB* 20 MG PO SCH (20:34)
[2018-08-10] MEDS: Morphine INJ* 2 MG/ML 1 ML SYRINGE (TWO MG - NEW SYRINGE VERSION) IV PRN (22:14)
[2018-08-10] MEDS: Magnesium Hydroxide LIQ* 30 ML UDC PO SCH (22:19)
[2018-08-10] MEDS: CMCS:Cyclosporine 0.05% OPHTH (NF) 0.4 ML VIAL BOTH EYES SCH (22:19)
[2018-08-10] MEDS: Docusate CAP* 100 MG PO SCH (22:19)
--- NOTE | 2018-08-11 00:13 | OP ---
OPERATIVE REPORT: DATE OF OPERATION: 08/10/18 DATE OF : 43 SURGEON: Joe Couch MD WOODWIND REEDS CUTTER: MOHINDER Du A physician press assistant was required for the length of the procedure for assistance with positioning, r etraction, and closure. SECOND WOODWIND REEDS CUTTER: Corinne Garcia. ANESTHESIOLOGIST: Dr. Eladia Chen. ANESTHESIA: Spinal anesthesia, regional adductor canal block anesthesia, local anesthesia consisting of 30 cc of 0.5% Marcaine. PRE-OP DIAGNOSIS: Left knee osteoarthritis. POST-OP DIAGNOSIS: Left knee osteoarthritis. OPERATIVE PROCEDURE: Left total knee arthroplasty. ANTIBIOTICS: Clindamycin 900 mg IV. IV FLUIDS: Lactated Ringers 2400 cc. TOURNIQUET TIME: 120 minutes at 300 mmHg, left thigh. GLXS-BE-UQTB TIME: 128 minutes. SPECIMENS: None. IMPLANTS: Jose and Jose Attune cruciate retaining fixed bearing total knee arthroplasty, cemen wilfred. Femur size 6 narrow. Tibia size 4. Patella size 32 mm. Tibial insert was 8 mm. Cement used w as Miguelangel Palacos. COMPLICATIONS: None. ESTIMATED BLOOD LOSS: Minimal. INDICATIONS FOR PROCEDURE: The patient presented with a long history of pain and osteoarthritis of t he left knee. Opted for total knee replacement. Radiographs confirmed the presence of tricompartmen gauri knee osteoarthritis. DESCRIPTION OF PROCEDURE: In the preoperative holding, the patient signed a written consent. Operat lei extremity was marked in the preoperative holding. In the preoperative holding, the patient under went an adductor canal block by Dr. Chen. The patient was brought to the operating room. There, she underwent spinal anesthesia by Dr. Chen. The patient was next placed supine. Placed a lateral post. Placed tourniquet about the left proximal thigh. Prepped and draped the left lower extremity. This included the use of the [facility] knee positioning system. Surgical time-out. Esmarch was applied and tourniquet was elevated to 300 mmHg. Anterior midline longitudinal skin incision made from 3 fingerbreadths proximal to the proximal fold of the patella to the distal end of the tibial tubercle. Changed knives, dissected down to the exten sor mechanism. Cleared off extensor mechanism. Made a parapatellar medial arthrotomy. Continued cristal t down through the anterior horn of the medial meniscus. Dissected capsule, anterior, off the medial tibial plateau and then the lateral tibial plateau. Jonas sheba much of the infrapatellar fat pad. Released some lateral patellofemoral retinaculum laterally. Patella everted easily without tension. With the knee still in full extension, removed from synovitis suprapatellar. Flexed knee to [address] retractors. Removed ACL. Marked the starting point for the femor al canal drilling. I drilled that with the drill set on ream. I placed distal femoral cutting guide. Before doing that, I removed some osteophytes which might have affected the measurement of depth re sected. I removed 9 mm at 6-degrees of valgus. I removed that instrument. I next sized the knee to either a size 5 or 5-6. I placed the size 6 four-in-one cutting guide. I c ut anteriorly and my cut was flushed with the distal femur. Medial to lateral, size 6 just barely fit , using the narrow. I secured the 4-in-1 cutting guide and made the rest of my cuts. Placed external tibial cutting guide. I positioned my cutting guide so that 3 mm will be removed fro m the row side, in this case the medial tibial plateau. I made my cut with an oscillating saw with a ll the proper retractors placed. I completed this cut. I left the PCL attached to a stump of bone p osteriorly. I next placed the knee in 90 degrees of flexion, removed meniscus with Bovie electrocautery. I did s ome medial and lateral. There were no posterior femoral osteophytes removed. I next used dog bone spacers. With the 5 mm dog bone, the knee fully extended and perhaps could have hyperextended a degree, but I noted that the MCL and LCL were very tight. I next rasped the anterior chamfer cut on the distal femur and placed a trial femur and drilled throu gh it into the distal femoral condyles. I next sized my tibia to a size 4. Placed guide and then reamed through it and punched. Extended the knee. I measured my patella to be 22 mm deep. I using the free-hand technique then mad e a patellar cut so that the patellar was 12 mm in depth. I sized the patella to a 32 mm button. I drilled through a guide. Button fit nicely. I next placed all my trial implants. The knee still felt tight. In full extension, the ligaments, M CL, and LCL were very tight for a woman of this age. The flexion gap was a little bit tighter than th e extension gap, as the PCL was especially taut. At this point, I decided to remove some more tibia. I replaced my tibial cutting guide so that I wou ld remove 4 mm more of tibia. I then resized the tibia and decided that it was still a size 4. I re placed the prep guide for the tibia and re- reamed and punched the tibia. Irrigation. Closure of the femoral canal with a bone plug made at the anterior chamfer bone. Irriga tion. Mixed cement. Placed final implants, tibia, femur, trail insert, and patella. Cement fully hardened. Irrigation. I trialed several size inserts after letting the cement harden with a [address] I picked the 8 mm insert. The PCL was a little on the lax side rather than a little on the tight side, as it had been the case earlier. Some of the PCL had avulsed off of the tibial insertion. Liked the tension in my collateral ligaments and the range of motion was unlimited by the knee, rathe r it was limited just by cast thigh contact at at least 110 degrees of flexion. Irrigation. I placed final insert, 8 mm. Prior to placing implants, I had placed 20 cc of local anesthesia, Marcaine 0.5% into the posterior m edial and lateral capsule. Next, I performed closure of the parapatellar arthrotomy. Did so using figure-of- eight stitches usi ng Ethibond 1 and Vicryl 0 suture. Next closure of the subcutaneous layer with buried simple stitche s using Vicryl 2.0 suture. Closure of the skin with ifeoma. Injection of the local anesthesia, 10 cc more into the subcutaneous tissue about the skin incision. Tourniquet was dropped at 120 minutes. Xeroform, 4x4's, ABDs, sterile Webril, Miguel from foot to proximal thigh. The patient was lightened off sedation, transferred to the stretcher, and transferred to the PACU. DISPOSITION: The patient was admitted to my service postoperatively. The patient will receive pain control, physical therapy, x-rays in PACU, IV antibiotics x24 hours plus oral antibiotics for 5 days postoperatively, medical management. The patient will follow up with me in clinic approximately 17 d ays postoperatively for removal of ifeoma. [id number]/[facility] #: [id number]
[2018-08-11] MEDS: Morphine INJ* 2 MG/ML 1 ML SYRINGE (TWO MG - NEW SYRINGE VERSION) IV PRN ×3 (01:22→06:04)
[2018-08-11] MEDS: oxyCODONE/Acetamin 5/325 MG* TAB PO PRN ×4 (01:23→21:00)
[2018-08-11] MEDS: Clindamycin 600 MG IVPREMIX(* 600 MG/50 ML SDV IV SCH ×2 (01:23→10:18)
[2018-08-11] MEDS: oxyCODONE TAB* 5 MG TAB PO PRN ×2 (03:53→18:04)
[2018-08-11] MEDS: Lactated Ringers 1000 ML Bag* 1,000 ML IV SCH ×2 (03:53→15:15)
[2018-08-11 06:38] LABS: Hematocrit 40 % (33-41); Hemoglobin 14.2 g/dL (12.0-16.0); Mean Platelet Volume 7.7 fL (7.4-10.4); Platelet Count 309 10^3/uL (150-450)
[2018-08-11 06:50] LABS: Calcium 8.7 mg/dL (8.6-10.3); Potassium 3.9 mmol/L (3.5-5.0)
[2018-08-11 06:55] LABS: BUN/Creatinine Ratio 17.5 (8-20); EGFR African American 125.5 (>60); EGFR Non-African American 103.7 (>60)
[2018-08-11] MEDS: Vitamin THERAPEUTIC TAB PO SCH (08:24)
[2018-08-11] MEDS: Apixaban* 2.5 MG TAB PO SCH ×2 (08:24→20:55)
[2018-08-11] MEDS: Docusate CAP* 100 MG PO SCH ×2 (08:24→20:54)
[2018-08-11] MEDS: Magnesium Hydroxide LIQ* 30 ML UDC PO SCH ×2 (08:25→21:35)
[2018-08-11] MEDS: CMCS:Cyclosporine 0.05% OPHTH (NF) 0.4 ML VIAL BOTH EYES SCH ×2 (08:38→20:56)
--- NOTE | 2018-08-11 09:55 | PN ---
Progress Note - Progress Note Date of Service: 08/11/18 SOAP: Subjective: Pain improved. Tired. Objective: NAD. Sleepy. Kept closing her eyes while talking to me despite being seated in a chair. LLE: - dressing c/d/i - NVID x-rays from PACU show good position of implants Selected Entries 08/11/18 08/11/18 08/11/18 03:59 07:30 08:40 Temperature 99.0 F 100.1 F Pulse Rate 110 Blood Pressure 131/41 (mmHg) O2 Sat by Pulse 94 Oximetry Laboratory Tests 08/11/18 06:26 Hct 40 Assessment: POD 1 L TKA Plan: - WBAT, PT - Pain control - IV abx 24 hours then oral for 5 days - f/u in clinic ~ 17 days post-op - Eliquis - Dispo planning - Monitor HR
[2018-08-11] MEDS: Lisinopril TAB* 10 MG PO SCH (20:54)
[2018-08-11] MEDS: amLODIPine TAB* 5 MG PO SCH (20:55)
[2018-08-11] MEDS: Famotidine TAB* 20 MG PO SCH (20:55)
[2018-08-11] MEDS: Amitriptyline TAB* 10 MG PO SCH (20:55)
[2018-08-12] MEDS: Lactated Ringers 1000 ML Bag* 1,000 ML IV SCH (01:20)
[2018-08-12] MEDS: oxyCODONE TAB* 5 MG TAB PO PRN ×2 (01:20→21:14)
[2018-08-12 05:47] LABS: Hematocrit 35 % (33-41); Hemoglobin 12.1 g/dL (12.0-16.0); Mean Platelet Volume 7.7 fL (7.4-10.4); Platelet Count 245 10^3/uL (150-450)
[2018-08-12] MEDS: oxyCODONE/Acetamin 5/325 MG* TAB PO PRN (07:34)
[2018-08-12] MEDS: Vitamin THERAPEUTIC TAB PO SCH (08:39)
[2018-08-12] MEDS: Apixaban* 2.5 MG TAB PO SCH ×2 (08:39→21:14)
[2018-08-12] MEDS: Docusate CAP* 100 MG PO SCH ×2 (08:39→21:15)
[2018-08-12] MEDS: Magnesium Hydroxide LIQ* 30 ML UDC PO SCH ×2 (08:39→21:18)
[2018-08-12] MEDS: CMCS:Cyclosporine 0.05% OPHTH (NF) 0.4 ML VIAL BOTH EYES SCH ×2 (08:40→21:07)
--- NOTE | 2018-08-12 10:44 | PN ---
Progress Note - Progress Note Date of Service: 08/12/18 SOAP: Subjective: Has been up 2 x with therapists. Has been very sleepy on pain meds, but with lesser amount of pain meds has difficulty mobilizing because of pain. HR has been persistently 120s even with patient sleeping, so we called a Hospitalist consult this morning to evaluate Objective: LLE: - Dressing c/d/i - NVID Selected Entries 08/12/18 08/12/18 07:46 08:37 Temperature 99.2 F Pulse Rate 121 121 Blood Pressure 135/64 (mmHg) Vital Signs on 2L o2 Comment O2 Sat by Pulse 91 94 Oximetry Patient on Room Yes Air Laboratory Tests 08/12/18 05:33 Hct 35 Assessment: POD 2 L TKA Plan: - PT, WBAT - Pain control - Oral antibiotics x 5 days after IV - Hospitalist consult for tachycardia - Dispo planning. Dressing change prior to hospital discharge.
[2018-08-12] MEDS ORDERED: NS 0.9% 500 ML* 500 ML IV ONE (10:52)
[2018-08-12] MEDS: traMADol TAB* 50 MG PO PRN ×2 (12:16→18:26)
[2018-08-12] MEDS: Acetaminophen TAB* 325 MG PO SCH ×2 (13:45→21:15)
[2018-08-12 18:39] LABS: Urine Appearance Cloudy; Urine Bacteria 1+ (Absent); Urine Bilirubin Negative (Negative); Urine Blood 1+ (Negative); Urine Color Yellow; Urine Glucose Negative (Negative); Urine Ketones Trace (Negative); Urine Nitrite Negative (Negative); Urine Protein 1+(30 mg/dL) (Negative); Urine Red Blood Cell 1+(3-5/hpf) (Absent); Urine Specific Gravity 1.014 (1.010-1.030); Urine Squamous Epithelial Cell Present (Absent); Urine Urobilinogen Negative (Negative); Urine White Blood Cell Trace(0-5/hpf) (Absent)
--- NOTE | 2018-08-12 20:09 | CONS ---
HOSPITAL MEDICINE CONSULTATION REPORT: DATE OF CONSULT: 08/12/18 PROVIDER: Dianne De La Rosa NP. ATTENDING PHYSICIAN: Dr. Couch.* CONSULTING PHYSICIAN: Dr. Shivam Huntley (dictated by Dianne De La Rosa NP). REASON FOR CONSULT: Tachycardia. HISTORY OF PRESENT ILLNESS: Ms. Gray is a 73-year-old female with a past medical history significant for acid reflux, hernia repair, and palpitations who [place] [facility] [place] for an elective left total knee arthroplasty with Dr. Couch. Please see dictated H and P by MOHINDER Madison, for complete details. In brief, the patient had ongoing pain, failed conservative measures; therefore, opted for left total knee arthroplasty with Dr. Couch. In the immediate postoperative period, the patient did not have any complaints. The patient was noted to be tachycardic since 08/11/18, so hospital medicine was consulted due to the patient's tachycardia. PAST MEDICAL HISTORY: 1. Reflux. 2. Osteoarthritis. 3. Hernia. 4. Palpitations, workup in May 2018, which was within normal limits. PAST SURGICAL HISTORY: Hysterectomy. HOME MEDICATIONS: Include: 1. Fosamax 70 p.o. weekly. 2. Patanol 1 drop both eyes b.i.d. p.r.n. 3. Fluticasone nasal spray 1 spray both nares q.a.m. p.r.n. 4. Estradiol vaginal suppository as needed. 5. Dexilant 60 mg p.o. at bedtime. 6. Cyclosporine 0.05 one drop to both eyes b.i.d. 7. Amlodipine 10 mg at bedtime. 8. Amitriptyline 10 mg p.o. at bedtime. 9. Ranitidine 300 mg p.o. at bedtime. 10. Quinapril 40 mg p.o. at bedtime. ALLERGIES: PENICILLIN. FAMILY HISTORY: Father and brother both with history of MIs; dad passed at age 87, brother at age 69 from a heart attack. Mother with a history of Alzheimer' s. Grandmother with breast cancer. SOCIAL HISTORY: The patient reports that she quit smoking 30 years ago. Prior to that, she smoked socially about a pack every 2 weeks. She does report occasional alcohol use. Denies any illicit drug use. She is . She lives alone. Surrogate decision maker in the event she is unable to make her own decisions is her daughter, Charissa. She is a full code. REVIEW OF SYSTEMS: The patient denies any fever, chills, chest pain, edema, cough, hemoptysis, or shortness of breath. Denies any nausea, vomiting, diarrhea, abdominal pain, gross hematuria, dysuria, focal weakness, or sensory loss. Denies any visual complaints, headache, dizziness, lightheadedness, dysphagia, arthralgias. She does report constant left knee pain since her surgery. With pain medication, she reports that the pain goes down to a 5 and as the pain medications were off, her pain is between an 8 and 9. She does report worsening pain with ambulation. She denies any rashes, lesions, psychosis, or anxiety. PHYSICAL EXAMINATION: General: At this time, Ms. Gray is alert and oriented , sitting in the chair in her room. She is in no acute distress. Vital Signs: Blood pressure 101/60, heart rate 113, respirations 16, O2 saturation 97%, temperature was 98.5. HEENT: Head is atraumatic, normocephalic. Eyes: EOMs are intact. Sclerae anicteric and not pale. Oral mucosa appeared to be moist. Neck is supple. Lungs are with crackles in the bases bilaterally. Cardiac: S1, S2. Regular rate and rhythm. She is tachycardic. Abdomen is obese, soft, nontender. Bowel sounds are present x4. Extremities: She is able to move all 4 extremities. She does have limited mobility to the left leg. She does have a dressing that is dry and intact to her left knee. Pedal pulses are +2 bilaterally. There is no clubbing or cyanosis. Neurologic: She is awake, alert, oriented x3. Speech is clear. Thought process is intact. There are no gross focal deficits. Skin: She has a dressing that is dry, intact to her left knee. DIAGNOSTIC STUDIES/LAB DATA: Laboratory Data: Hemoglobin was 12.1, hematocrit was 35, platelet count was 245. Sodium on 08/11/18 was 134, potassium 3.9, chloride 107, carbon dioxide was 23, anion gap was 11, BUN was 10, creatinine 0.57, glucose was 163, and calcium was 8.7. IMPRESSION AND PLAN: Ms. Gray is a 73-year-old female with a past medical history significant for reflux and hernia as well as a history of palpitations that was worked up in May 2018 and no abnormalities were found. Hospital medicine was asked to consult due to tachycardia. Our recommendations are as follows: 1. Tachycardia. I will order a chest x-ray and an EKG. At this point, the patient does not look volume depleted. I am going to stop her IV fluids. I will also get a urine as the patient does have a remote history of urinary tract infection, for which she was treated for a week prior to her hospitalization. I suspect that her tachycardia could be related to her undertreated pain to her left knee. I will change her Tylenol to 975 p.o. q.8 hours scheduled. I will change her oxycodone to 5 mg q.4 hours p.r.n. pain and 10 mg p.o. q.4 hours severe pain to see if this is contributing to her tachycardia. The patient denies any shortness of breath, chest pain, cough, or congestion. Within the differential could be pulmonary embolism. At this point , it is unlikely as her Wells score is a 3 and any score under 4 or below, PE is unlikely. The patient is currently on Eliquis for DVT prophylaxis. Should the patient become hypoxic or develop chest pain, we could consider doing a CT scan of her chest. At this time, it is likely her tachycardia is related to her undertreated pain. As she reports, she continues to have a pain level at 5 when taking her pain medicines. 2. Hypertension. I am going to stop her amlodipine and I will put holding parameters for lisinopril for blood pressure less than 100. 3. Left total knee arthroplasty. Continue management per orthopedics. 4. DVT prophylaxis per orthopedics. 5. Code status. She is a full code. TIME SPENT: Time spent on this consultation was 45 minutes, greater than half the time was spent at the bedside reviewing events leading thus far to her hospitalization and events during her hospitalization, performing my physical exam, and reviewing my plan of care. I have discussed with my attending, Dr. Shivam Huntley, who is in agreement with my plan. Thank you for allowing us to participate in the care of Ms. Gray. If any further recommendations are needed, please do not hesitate to contact our service. We will continue to follow along in her care. DIANNE DE LA ROSA, MAILROOM COURIER [id number]/[facility] #: [id number] [facility] CENTERKaran
[2018-08-12] MEDS: Lisinopril TAB* 10 MG PO SCH (21:14)
[2018-08-12] MEDS: Amitriptyline TAB* 10 MG PO SCH (21:15)
[2018-08-12] MEDS: Famotidine TAB* 20 MG PO SCH (21:15)
[2018-08-13] MEDS: traMADol TAB* 50 MG PO PRN ×3 (00:47→20:48)
[2018-08-13] MEDS: Acetaminophen TAB* 325 MG PO SCH ×3 (05:53→20:48)
[2018-08-13] MEDS: oxyCODONE TAB* 5 MG TAB PO PRN ×2 (05:53→13:36)
[2018-08-13 06:08] LABS: Hematocrit 33 % (33-41); Hemoglobin 11.4 g/dL (12.0-16.0); Mean Platelet Volume 7.9 fL (7.4-10.4); Platelet Count 274 10^3/uL (150-450)
[2018-08-13] MEDS: Vitamin THERAPEUTIC TAB PO SCH (09:04)
[2018-08-13] MEDS: Magnesium Hydroxide LIQ* 30 ML UDC PO SCH ×2 (09:04→20:49)
[2018-08-13] MEDS: Apixaban* 2.5 MG TAB PO SCH ×2 (09:04→20:48)
[2018-08-13] MEDS: Docusate CAP* 100 MG PO SCH ×2 (09:06→20:47)
[2018-08-13] MEDS: CMCS:Cyclosporine 0.05% OPHTH (NF) 0.4 ML VIAL BOTH EYES SCH ×3 (09:06→20:49)
--- NOTE | 2018-08-13 13:54 | PN ---
Progress Note - Progress Note Date of Service: 08/13/18 SOAP: Subjective: []Pt seen at bedside. She feels well without CP, SOB, dizziness, nausea. Knee pain is well controlled. She was dizzy with PT this morning which resolved with rest. Objective: []General: Appears well, NAD LLE: Left knee dressing changed, incision CDI without erythema or discharge. Thigh soft, DF/PF intact, DP2+, sensation intact to light touch distally Calves supple and nontender without erythema, edema or palpable cords Assessment: [] POD 3 L TKA Plan: - PT, WBAT - Pain control - No Oral antibiotics needed - Discussed tachycardia with Hospitalist. Plan is to wean from O2, if desat will consider CTA. - Dispo planning. Anticipate home today or tomorrow - Has 1 stair at home, strongly encouraged patient to practice 1 stair with PT to prepare for home environment Vital Signs Temp 98.6 F 08/13/18 11:25 Pulse 105 08/13/18 11:25 Resp 16 08/13/18 13:36 BP 118/67 08/13/18 11:25 Pulse Ox 93 08/13/18 11:25 Intake & Output 08/12/18 08/13/18 08/13/18 18:59 06:59 18:59 Intake Total 1948 840 120 Output Total 800 300 Balance 1148 540 120 Intake: IV Fluids 1348 LR 848 ns 500 Oral 600 840 120 Output: Urine 800 300 Other: # Bowel Movements 0 Laboratory Last Values Hgb 11.4 g/dL (12.0-16.0) L 08/13/18 05:38 Hct 33 % (33-41) 08/13/18 05:38 Plt Count 274 10^3/uL (150-450) 08/13/18 05:38 MPV 7.9 fL (7.4-10.4) 08/13/18 05:38 Sodium 134 mmol/L (135-145) L 08/11/18 06:26 Potassium 3.9 mmol/L (3.5-5.0) 08/11/18 06:26 Chloride 100 mmol/L (101-111) L 08/11/18 06:26 Carbon Dioxide 23 mmol/L (22-32) 08/11/18 06:26 Anion Gap 11 mmol/L (2-11) 08/11/18 06:26 BUN 10 mg/dL (6-24) 08/11/18 06:26 Creatinine 0.57 mg/dL (0.51-0.95) 08/11/18 06:26 Est GFR ( Amer) 125.5 (>60) 08/11/18 06:26 Est GFR (Non-Af Amer) 103.7 (>60) 08/11/18 06:26 BUN/Creatinine Ratio 17.5 (8-20) 08/11/18 06:26 Glucose 163 mg/dL (70-100) H 08/11/18 06:26 Calcium 8.7 mg/dL (8.6-10.3) 08/11/18 06:26 Urine Color Yellow 08/12/18 18:25 Urine Appearance Cloudy 08/12/18 18:25 Urine pH 7.0 (5-9) 08/12/18 18:25 Ur Specific Rochert 1.014 (1.010-1.030) 08/12/18 18:25 Urine Protein 1+(30 mg/dl) (Negative) A 08/12/18 18:25 Urine Ketones Trace (Negative) A 08/12/18 18:25 Urine Blood 1+ (Negative) A 08/12/18 18:25 Urine Nitrate Negative (Negative) 08/12/18 18:25 Urine Bilirubin Negative (Negative) 08/12/18 18:25 Urine Urobilinogen Negative (Negative) 08/12/18 18:25 Ur Leukocyte Esterase Negative (Negative) 08/12/18 18:25 Urine WBC (Auto) Trace(0-5/hpf) (Absent) 08/12/18 18:25 Urine RBC (Auto) 1+(3-5/hpf) (Absent) A 08/12/18 18:25 Ur Squamous Epith Cells Present (Absent) A 08/12/18 18:25 Urine Bacteria 1+ (Absent) A 08/12/18 18:25 Hyaline Casts Present (Absent) A 08/12/18 18:25 Urine Glucose Negative (Negative) 08/12/18 18:25
[2018-08-13] MEDS ORDERED: NS 0.9% 1000 ML** 1,000 ML IV SCH (14:45)
--- NOTE | 2018-08-13 15:03 | PN ---
Subjective Date of Service: 08/13/18 Interval History: Pt is feeling well. She feels exhausted today. She slept well overnight but worked really hard with PT today. She remains tachycardic and hypoxic off oxygen. Ortho is going to obtain CTA chest to r/o PE. PE seems unlikely but I agree with the plan. She has not had a BM yet, she states she has not been eating much. Objective Active Medications: Acetaminophen (Tylenol Tab*) 975 mg PO Q8H [facility] Last Admin: 08/13/18 13:35 Dose: 975 mg Alendronate Sodium (Fosamax (Nf)) 70 mg PO WEEKLY@0700 [facility]; Protocol Amitriptyline HCl (Elavil Tab*) 10 mg PO BEDTIME [facility] Last Admin: 08/12/18 21:15 Dose: 10 mg Apixaban (Eliquis*) 2.5 mg PO BID [facility] Last Admin: 08/13/18 09:04 Dose: 2.5 mg Bisacodyl (Dulcolax Supp*) 10 mg [place] DAILY PRN PRN Reason: constipation Cyclobenzaprine HCl (Flexeril Tab*) 5 mg PO TID PRN PRN Reason: SPASMS Last Admin: 08/10/18 18:59 Dose: 5 mg Cyclosporine (Restasis 0.05% Ophth) 1 drop BOTH EYES BID [facility]; Protocol Last Admin: 08/13/18 10:49 Dose: Not Given Diphenhydramine HCl (Benadryl Iv*) 25 mg IV Q6H PRN PRN Reason: itching Docusate Sodium (Colace Cap*) 100 mg PO BID [facility] Last Admin: 08/13/18 09:06 Dose: 100 mg Famotidine (Pepcid Tab*) 40 mg PO BEDTIME [facility] Last Admin: 08/12/18 21:15 Dose: 40 mg Sodium Chloride (Ns 0.9% 1000 Ml) 1,000 mls @ 125 mls/hr IV PER RATE [facility] Stop: 08/13/18 22:44 Lactulose (Lactulose*) 30 ml PO Q6H PRN PRN Reason: constipation Lisinopril (Prinivil Tab*) 40 mg PO BEDTIME [facility] Last Admin: 08/12/18 21:14 Dose: 40 mg Magnesium Hydroxide (Milk Of Magnesia Liq*) 30 ml PO BID [facility] Last Admin: 08/13/18 09:04 Dose: 30 ml Magnesium Hydroxide (Milk Of Magnesia Liq*) 30 ml PO Q6H PRN PRN Reason: constipation Morphine Sulfate (Morphine Inj (Syringe))*) 2 mg IV Q2H PRN PRN Reason: PAIN Last Admin: 08/11/18 06:04 Dose: 2 mg Multivitamins (Theragran Tab*) 1 tab PO DAILY [facility] Last Admin: 08/13/18 09:04 Dose: 1 tab Olopatadine HCl (Patanol 0.1% Ophth (Nf)) 1 drop BOTH EYES BID PRN; Protocol PRN Reason: Allergy Symptoms Ondansetron HCl (Zofran Inj*) 4 mg IV Q6H PRN PRN Reason: nausea Last Admin: 08/10/18 18:35 Dose: 4 mg Oxycodone HCl (Roxycodone Tab*) 10 mg PO Q4H PRN PRN Reason: PAIN - SEVERE Last Admin: 08/12/18 01:20 Dose: 10 mg Oxycodone HCl (Roxycodone Tab*) 5 mg PO Q4H PRN PRN Reason: PAIN Last Admin: 08/13/18 13:36 Dose: 5 mg Tramadol HCl (Ultram*) 50 mg PO Q6H PRN PRN Reason: PAIN Last Admin: 08/13/18 09:04 Dose: 50 mg Vital Signs - 8 hr 08/13/18 08/13/18 08/13/18 08:00 08:16 09:04 Temperature 98.6 F Pulse Rate 105 Respiratory 15 15 15 Rate Blood Pressure 100/48 (mmHg) O2 Sat by Pulse 94 Oximetry 08/13/18 08/13/18 08/13/18 11:25 11:50 13:36 Temperature 98.6 F Pulse Rate 105 Respiratory 16 15 16 Rate Blood Pressure 118/67 (mmHg) O2 Sat by Pulse 93 Oximetry Oxygen Devices in Use Now: Nasal Cannula Appearance: Elderly female sitting up in recliner, sleeping, awakens to voice, NAD Eyes: No Scleral Icterus Ears/Nose/Mouth/Throat: Mucous Membranes Moist Respiratory: Symmetrical Chest Expansion and Respiratory Effort, Clear to Auscultation Cardiovascular: NL Sounds; No Murmurs; No JVD, - - tachycardic but regular, trace LE edema Abdominal: NL Sounds; No Tenderness; No Distention Extremities: No Clubbing, Cyanosis Skin: No Nodules or Sclerosis Neurological: Alert and Oriented x 3 Result Diagrams: 08/13/18 05:38 08/11/18 06:26 Assess/Plan/Problems-Billing Ms Gray is a 73 yo F who has a h/o HTN, OA and GERD who was admitted following a L total knee replacement. Hospitalists were asked to consult given ongoing tachycardia. - Patient Problems (1) Tachycardia Current Visit: Yes Status: Acute Code(s): R00.0 - TACHYCARDIA, UNSPECIFIED SNOMED Code(s): 4992420 Comment: Pt remains tachycardic but slightly better than earlier this stay. I think she may be dry given her elevated urine specific gravity last evening. Will give NS at 125ml/hr x1 L. Plan for CTA chest to r/o PE. Monitor overnight. She is hypoxic but I think that may be from atelectasis, encourage the incentive spirometer. CTA as above. (2) HTN (hypertension) Current Visit: Yes Status: Acute Code(s): I10 - ESSENTIAL (PRIMARY) HYPERTENSION SNOMED Code(s): 03503792 Comment: BP under excellent control though somewhat lower than it had been previously. That may go along with being volume deplete. (3) S/P TKR (total knee replacement) Current Visit: Yes Status: Acute Code(s): Z96.659 - PRESENCE OF UNSPECIFIED ARTIFICIAL KNEE JOINT SNOMED Code(s): 1608288097177 Comment: Mangement per orthopedics. (4) DVT prophylaxis Current Visit: Yes Status: Acute Code(s): BOD4624 - SNOMED Code(s): 843355895 Comment: anupama (5) Full code status Current Visit: Yes Status: Acute Code(s): Z78.9 - OTHER SPECIFIED HEALTH STATUS SNOMED Code(s): 271120761
[2018-08-13] MEDS ORDERED: Iohexol 350* (CONTRAST) 500 ML MDV IV ONE (16:30)
[2018-08-13] MEDS: Lisinopril TAB* 10 MG PO SCH (20:47)
[2018-08-13] MEDS: Famotidine TAB* 20 MG PO SCH (20:47)
[2018-08-13] MEDS: Amitriptyline TAB* 10 MG PO SCH (20:48)
[2018-08-14] MEDS: Acetaminophen TAB* 325 MG PO SCH (05:48)
[2018-08-14] MEDS: traMADol TAB* 50 MG PO PRN ×2 (05:48→12:27)
[2018-08-14 05:52] LABS: Hematocrit 35 % (33-41); Hemoglobin 11.9 g/dL (12.0-16.0); Mean Platelet Volume 7.8 fL (7.4-10.4); Platelet Count 318 10^3/uL (150-450)
[2018-08-14] MEDS: CMCS:Cyclosporine 0.05% OPHTH (NF) 0.4 ML VIAL BOTH EYES SCH (08:38)
[2018-08-14] MEDS: Vitamin THERAPEUTIC TAB PO SCH (08:38)
[2018-08-14] MEDS: Apixaban* 2.5 MG TAB PO SCH (08:39)
[2018-08-14] MEDS: Docusate CAP* 100 MG PO SCH (08:40)
[2018-08-14] MEDS: Magnesium Hydroxide LIQ* 30 ML UDC PO SCH (08:40)
[2018-08-14] MEDS: oxyCODONE TAB* 5 MG TAB PO PRN (08:44)
--- NOTE | 2018-08-14 09:53 | PN ---
Progress Note - Progress Note Date of Service: 08/14/18 SOAP: Subjective: []Pt seen at bedside. She feels well, knee pain is well controlled today. Denies CP, SOB, dizziness, nausea. Objective: []General: Appears well, NAD LLE: Left knee dressing changed, incision CDI without erythema or discharge. Thigh soft, DF/PF intact, DP2+, sensation intact to light touch distally Calves supple and nontender without erythema, edema or palpable cords Assessment: [] POD 4 L TKA Plan: - PT, must participate with stair today, WBAT - No Oral antibiotics needed - CTA done yesterday due to O2 sat of 87 on room air. No PE. Likely atelectasis. Will discuss with medicine prior to DC - Anticipate home today, O2 sat 93 on room air. Monitor O2 with PT, monitor HR Vital Signs Temp 99.4 F 08/14/18 03:30 Pulse 105 08/14/18 03:30 Resp 16 08/14/18 08:44 BP 123/68 08/14/18 03:30 Pulse Ox 97 08/14/18 03:30 Intake & Output 08/13/18 08/14/18 08/14/18 18:59 06:59 18:59 Intake Total 480 700 Output Total 1200 Balance 480 -500 Weight 194 lb Intake: Oral 480 700 Output: Urine 1200 Other: # Bowel Movements 0 Laboratory Last Values Hgb 11.9 g/dL (12.0-16.0) L 08/14/18 05:42 Hct 35 % (33-41) 08/14/18 05:42 Plt Count 318 10^3/uL (150-450) 08/14/18 05:42 MPV 7.8 fL (7.4-10.4) 08/14/18 05:42 Sodium 134 mmol/L (135-145) L 08/11/18 06:26 Potassium 3.9 mmol/L (3.5-5.0) 08/11/18 06:26 Chloride 100 mmol/L (101-111) L 08/11/18 06:26 Carbon Dioxide 23 mmol/L (22-32) 08/11/18 06:26 Anion Gap 11 mmol/L (2-11) 08/11/18 06:26 BUN 10 mg/dL (6-24) 08/11/18 06:26 Creatinine 0.57 mg/dL (0.51-0.95) 08/11/18 06:26 Est GFR ( Amer) 125.5 (>60) 08/11/18 06:26 Est GFR (Non-Af Amer) 103.7 (>60) 08/11/18 06:26 BUN/Creatinine Ratio 17.5 (8-20) 08/11/18 06:26 Glucose 163 mg/dL (70-100) H 08/11/18 06:26 Calcium 8.7 mg/dL (8.6-10.3) 08/11/18 06:26 Urine Color Yellow 08/12/18 18:25 Urine Appearance Cloudy 08/12/18 18:25 Urine pH 7.0 (5-9) 08/12/18 18:25 Ur Specific [place] 1.014 (1.010-1.030) 08/12/18 18:25 Urine Protein 1+(30 mg/dl) (Negative) A 08/12/18 18:25 Urine Ketones Trace (Negative) A 08/12/18 18:25 Urine Blood 1+ (Negative) A 08/12/18 18:25 Urine Nitrate Negative (Negative) 08/12/18 18:25 Urine Bilirubin Negative (Negative) 08/12/18 18:25 Urine Urobilinogen Negative (Negative) 08/12/18 18:25 Ur Leukocyte Esterase Negative (Negative) 08/12/18 18:25 Urine WBC (Auto) Trace(0-5/hpf) (Absent) 08/12/18 18:25 Urine RBC (Auto) 1+(3-5/hpf) (Absent) A 08/12/18 18:25 Ur Squamous Epith Cells Present (Absent) A 08/12/18 18:25 Urine Bacteria 1+ (Absent) A 08/12/18 18:25 Hyaline Casts Present (Absent) A 08/12/18 18:25 Urine Glucose Negative (Negative) 08/12/18 18:25
--- NOTE | 2018-08-14 10:30 | DS ---
Orthopedic Discharge Summary - Discharge Summary Date of Admission:08/10/18 Date of Discharge: 08/14/18 Date of Surgery: 08/10/18 Attending Orthopedic Provider: Dr Couch Pre-operative Diagnosis: left knee osteoarthritis Operative Procedure: left total knee replacement Condition of Patient: stable History: RAY GALEANA is a 73 year old F with years of increasingly severe left knee pain. Patient has failed conservative management and has elected to undergo a left total knee replacement Hospital Course: RAY was admitted to [facility] on 08/10/18. Patient underwent a left total knee replacement without complication followed by a brief recovery in PACU and transfer to the Short Stay Surgical Unit in stable condition. Our hospitalist service, physical therapy and occupational therapy also participated in this patients care. Post-op day 1: patient was alert and in no acute distress. Dressing was clean, dry and intact. Operative extremity dorsiflexion and plantarflexion intact, sensation intact to light touch distally, DP2+. Post-op day two: Dressing CDI. POD3: dressing was changed , incision was clean, dry and intact. Patient had a CTA negative for PE due to tachycardia and hypoxia. Atelectasis was seen on CTA. POD 4 patient was still mildly tachycardic 100-105 bpm, oxygenation improved to 95% on room air and 96% on room air while working with PT. Discussed this patient with medicine, deemed to be medically and orthopedically stable for discharge home. Physical therapy goals were met. Home Medications Medication Instructions Recorded Confirmed Type Alendronate (NF) Fosamax (NF) 70 mg PO WEEKLY 11/10/15 08/10/18 History Dexlansoprazole (NF) [Dexilant 60 mg PO BEDTIME 11/10/15 08/10/18 History (NF)] Olopatadine 0.1% OPHTH (NF) 1 drop BOTH EYES BID PRN 11/10/15 08/10/18 History [Patanol 0.1% OPHTH (NF)] Ranitidine HCl 300 mg (Nf) 300 mg PO BEDTIME 11/10/15 08/10/18 History [Ranitidine HCl] Cyclosporine 0.05% OPHTH (NF) 1 drop BOTH EYES BID 05/15/18 08/10/18 History [Restasis 0.05% OPHTH] Amitriptyline TAB* [Elavil TAB*] 10 mg PO BEDTIME 06/14/18 08/10/18 History Amlodipine Besylate [Norvasc 10 mg 10 mg PO BEDTIME 06/14/18 08/10/18 History tab] Estradiol VAGINAL TAB(NF) [Vagifem] 10 vag.supp VAGINAL SEE 06/14/18 08/10/18 History INSTRUCTIONS Quinapril HCl 40 mg PO BEDTIME 06/14/18 08/10/18 History Fluconazole Nasal [place] 1 spray BOTH NARES QAM PRN 08/02/18 08/10/18 History Acetaminophen TAB* [Tylenol TAB*] 975 mg PO Q8H tab 08/13/18 Rx Apixaban* [Eliquis*] 2.5 mg PO BID #26 tab 08/13/18 Rx Docusate CAP* [Colace Cap*] 100 mg PO BID PRN #90 cap 08/13/18 Rx oxyCODONE TAB* [Roxycodone TAB 5 5 mg PO Q4H PRN #70 tab MDD 10 08/13/18 Rx mg*] oxyCODONE TAB* [Roxycodone TAB 5 10 mg PO Q4H PRN tab MDD 10 08/13/18 Rx mg*] Discharge Instructions following Orthopedic Surgery: Activity: * Weight Bearing as tolerated * Continue physical therapy and occupational therapy exercises as shown * Start PT at home Wound care: * OK to shower on post-op day 3, no bathing, swimming, or submerging wound. * Use gentle soap, pat dry. Cover with gauze, CHELSI wrap or tape. * Visiting home nurse to do wound checks. Call Orthopedic office for: * Increased drainage * Redness * Increased pain * Fever Go to ER with shortness of breath or chest pain. Diet: * Regular diet * Increase fluids and fiber to prevent constipation. * Continue to use stool softeners, call office if no bowel motion within 48 hours. Medications See Home Medication List in your packet for medications that you should take after discharge. DVT Prophylaxis: Eliquis Dosin.5 mg, 1 tab every 12 hours x 30 days. This medication increases bleeding tendency Pain Control: Oxycodone Dosin mg 1-2 tabs by mouth every 4-6 hours as needed for pain. Maximum of 10 tabs per day. Hold for sedation. Wean off as soon as pain allows Antibiotics are required prior to any dental work. FOLLOW UP: Follow up with [Iza] 17 days post op, call for appointment Please call our office with any questions or concerns ([phone])
--- NOTE | 2018-08-14 10:44 | PN ---
Subjective Date of Service: 08/14/18 Interval History: Sol is feeling well. She is a little nervous about going home wanting to make sure everything goes smoothly. The patient's daughter questions how often she should be getting up and moving at home. Objective Active Medications: Acetaminophen (Tylenol Tab*) 975 mg PO Q8H [facility] Last Admin: 08/14/18 05:48 Dose: 975 mg Alendronate Sodium (Fosamax (Nf)) 70 mg PO WEEKLY@0700 [facility]; Protocol Amitriptyline HCl (Elavil Tab*) 10 mg PO BEDTIME [facility] Last Admin: 08/13/18 20:48 Dose: 10 mg Apixaban (Eliquis*) 2.5 mg PO BID [facility] Last Admin: 08/14/18 08:39 Dose: 2.5 mg Bisacodyl (Dulcolax Supp*) 10 mg [place] DAILY PRN PRN Reason: constipation Cyclobenzaprine HCl (Flexeril Tab*) 5 mg PO TID PRN PRN Reason: SPASMS Last Admin: 08/10/18 18:59 Dose: 5 mg Cyclosporine (Restasis 0.05% Oph) 1 drop BOTH EYES BID [facility]; Protocol Last Admin: 08/14/18 08:38 Dose: 1 drop Diphenhydramine HCl (Benadryl Iv*) 25 mg IV Q6H PRN PRN Reason: itching Docusate Sodium (Colace Cap*) 100 mg PO BID [facility] Last Admin: 08/14/18 08:40 Dose: 100 mg Famotidine (Pepcid Tab*) 40 mg PO BEDTIME [facility] Last Admin: 08/13/18 20:47 Dose: 40 mg Lactulose (Lactulose*) 30 ml PO Q6H PRN PRN Reason: constipation Lisinopril (Prinivil Tab*) 40 mg PO BEDTIME [facility] Last Admin: 08/13/18 20:47 Dose: 40 mg Magnesium Hydroxide (Milk Of Magnesia Liq*) 30 ml PO BID [facility] Last Admin: 08/14/18 08:40 Dose: Not Given Magnesium Hydroxide (Milk Of Magnesia Liq*) 30 ml PO Q6H PRN PRN Reason: constipation Morphine Sulfate (Morphine Inj (Syringe))*) 2 mg IV Q2H PRN PRN Reason: PAIN Last Admin: 08/11/18 06:04 Dose: 2 mg Multivitamins (Theragran Tab*) 1 tab PO DAILY [facility] Last Admin: 08/14/18 08:38 Dose: 1 tab Olopatadine HCl (Patanol 0.1% Ophth (Nf)) 1 drop BOTH EYES BID [facility]; Protocol PRN Reason: Allergy Symptoms Ondansetron HCl (Zofran Inj*) 4 mg IV Q6H PRN PRN Reason: nausea Last Admin: 08/10/18 18:35 Dose: 4 mg Oxycodone HCl (Roxycodone Tab*) 10 mg PO Q4H PRN PRN Reason: PAIN - SEVERE Last Admin: 08/12/18 01:20 Dose: 10 mg Oxycodone HCl (Roxycodone Tab*) 5 mg PO Q4H PRN PRN Reason: PAIN Last Admin: 08/14/18 08:44 Dose: 5 mg Tramadol HCl (Ultram*) 50 mg PO Q6H PRN PRN Reason: PAIN Last Admin: 08/14/18 05:48 Dose: 50 mg Vital Signs - 8 hr 08/14/18 08/14/18 08/14/18 03:30 05:48 08:41 Temperature 99.4 F Pulse Rate 105 Respiratory 16 18 18 Rate Blood Pressure 123/68 (mmHg) O2 Sat by Pulse 97 Oximetry 08/14/18 08:44 Temperature Pulse Rate Respiratory 16 Rate Blood Pressure (mmHg) O2 Sat by Pulse Oximetry Oxygen Devices in Use Now: None Appearance: Elderly female sitting up in a recliner, NAD Eyes: No Scleral Icterus Ears/Nose/Mouth/Throat: Mucous Membranes Moist Respiratory: Symmetrical Chest Expansion and Respiratory Effort, - - R LLL crackles Cardiovascular: NL Sounds; No Murmurs; No JVD, - - mildly tachycardic, regular Abdominal: NL Sounds; No Tenderness; No Distention Extremities: No Clubbing, Cyanosis, - - L knee in surgical dressing and cryounit Skin: No Rash or Ulcers Neurological: Alert and Oriented x 3 Result Diagrams: 08/14/18 05:42 08/11/18 06:26 Microbiology and Other Data: Microbiology 08/12/18 18:25 Urine Culture - Final Urine Assess/Plan/Problems-Billing Ms Gray is a 73 yo F who has a h/o HTN, OA and GERD who was admitted following a L total knee replacement. Hospitalists were asked to consult given ongoing tachycardia. - Patient Problems (1) Tachycardia Current Visit: Yes Status: Acute Code(s): R00.0 - TACHYCARDIA, UNSPECIFIED SNOMED Code(s): 8773409 Comment: Pt remains tachycardic but regular. Her HR has come down slightly. Likely volume depletion and pain driving the elevated HR. No evidence of PE on CTA. Hypoxia has resolved-likely seccondary to atelectasis. I asked the patient to take the incentive spirometer home and use routinely. (2) HTN (hypertension) Current Visit: Yes Status: Acute Code(s): I10 - ESSENTIAL (PRIMARY) HYPERTENSION SNOMED Code(s): 95539392 Comment: BP under excellent control. Continue home dose of lisinopril. (3) S/P TKR (total knee replacement) Current Visit: Yes Status: Acute Code(s): Z96.659 - PRESENCE OF UNSPECIFIED ARTIFICIAL KNEE JOINT SNOMED Code(s): 6440759620412 Comment: Mangement per orthopedics. (4) DVT prophylaxis Current Visit: Yes Status: Acute Code(s): ZBI0397 - SNOMED Code(s): 109782236 Comment: anupama (5) Full code status Current Visit: Yes Status: Acute Code(s): Z78.9 - OTHER SPECIFIED HEALTH STATUS SNOMED Code(s): 396471307
[2018-08-14 11:41] VITALS: BP 141/61
[2018-08-17] MEDS ORDERED: Alendronate (NF) 70 MG TAB PO SCH (07:00)
== END 2018-08-14 14:30 | disposition home health service (06) | DRG 470 ==
LOC: AA 06:59 → SSU 16:36
PROVIDERS: ADMIT Orthopaedic Surgery; ATTEND Orthopaedic Surgery
PROC: 0SRD0J9 Replacement of Left Knee Joint with Synthetic Substitute, Cemented, Open Approach (ICD-10-PCS; principal; 2018-08-10 08:30)
DX: M17.12 Unilateral primary osteoarthritis, left knee (principal); J98.11 Atelectasis; E86.9 Volume depletion, unspecified; K21.9 Gastro-esophageal reflux disease without esophagitis; I10 Essential (primary) hypertension; R00.0 Tachycardia, unspecified; M25.762 Osteophyte, left knee; R09.02 Hypoxemia; Z82.49 Family history of ischemic heart disease and other diseases of the circulatory system; Z80.3 Family history of malignant neoplasm of breast; Z79.899 Other long term (current) drug therapy; Z88.0 Allergy status to penicillin; Z87.891 Personal history of nicotine dependence
CPT/HCPCS: 36415; 71046; 71275; 80048; 81003; 81015; 85014; 85018; 85049; 87086; 88305; 88311; 93005; A9270-GY; G8978-GP-CL; G8979-GP-CI; J1170; J2250; J2270; J2405; J2704; J2795; J3010; J3490; Q9967

== ENCOUNTER 2019-03-25 15:54 | Emergency (ER) | payer MEDICARE ==
--- OUTSIDE RECORDS SUMMARY | 2019-03-25 16:36 | XMS REPORT | Continuity of Care Document ---
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 Medicine Problems Active Problems Provider Date Aftercare following joint replacement Joe Couch MD Onset: 2018 surgery Localized, primary osteoarthritis Joe Couch MD Onset: 08/02/2018 Social History Type Date Description Comments Sex Unknown ETOH Use Denies alcohol use Tobacco Use Start: Unknown Patient has never smoked Smoking Status Reviewed: 02/04/19 Patient has never smoked Exercise Type/Frequency Exercises sporadically Allergies, Adverse Reactions, Alerts Active Allergies Reaction Severity Comments Date Penicillin 09/12/2017 Medications Active Medications SIG Qnty Indications Ordering Date Provider Oxycodone-Acetaminophen 1 tab by mouth 30tabs Joe 11/12/2018 5-325mg every 4-6 hours MD Iza Tablets as needed for pain Methylprednisolone take as directed 21units Joe 11/12/2018 4mg TBPK MD Iza Fluticasone Propionate Inhale 2 Sprays Unknown Into Each 50mcg/Act Suspension Nostril Every Day For Nasal Congestion Rinse Mouth After Use as Needed Vagifem insert 1 tablet Unknown 10mcg Tablets vaginally twice a week Dexilant 1 by mouth every Unknown 60mg Capsules DR day Amitriptyline HCL 2 at bed Unknown 10mg Tablets Amlodipine Besylate Take One Tablet Unknown 10mg By Mouth Every Tablets Day For High Blood Pressure Ranitidine HCL Take One Tablet Unknown 300mg Tablets By Mouth AT Bedtime Quinapril HCL Take One Tablet Unknown 40mg Tablets By Mouth Every Day For Blood Pressure History Medications Methylprednisolone take medrol 1units M17.12 [facility] 10/22/2018 - 4mg TBPK dose pack as MD Iza 11/12/2018 directed Tramadol HCL 1 tab every 6 30tabs Joe 09/20/2018 - 50mg Tablets hours as needed MD Iza 12/03/2018 pain Percocet 1 tabs by mouth 42tabs [facility] 09/05/2018 - 5-325mg Tablets every 4-6 hours MD Iza 09/26/2018 as needed pain Metronidazole 1 tablet po tid 9tabs M17.12 [facility] 08/30/2018 - 250mg Tablets x 3 days MD Iza 09/26/2018 Percocet 1 - 2 tabs by 42tabs [facility] 08/20/2018 - 5-325mg Tablets mouth every 4 - MD Iza 08/29/2018 6 hours as needed for pain. Compression Stockings 20 1units M17.12 [facility] 08/15/2018 - Misc MD Iza 12/03/2018 Clindamycin HCL take one tab 2 14caps M17.12 [facility] 08/15/2018 - 150mg Capsules times a day for MD Iza 08/29/2018 7 days Cipro take one tab 6tabs Silke Macedo 08/06/2018 - 250mg Tablets twice a day for M.D. 08/29/2018 three days Medications Administered in Office Medication SIG Qnty [...] Available Vital Signs Date Vital Result Comment 02/04/2019 1:31pm Height 63 inches 5'3" Weight 185.00 lb Heart Rate 97 /min BP Systolic 136 mmHg BP Diastolic 82 mmHg Respiratory Rate 16 /min Body Temperature 97.0 F Pain Level 0 O2 % BldC Oximetry 96 % BMI (Body Mass Index) 32.8 kg/m2 12/04/2018 3:07pm Height 64 inches 5'4" Weight 185.00 lb Heart Rate 100 /min BP Systolic Sitting 144 mmHg BP Diastolic Sitting 92 mmHg Respiratory Rate 14 /min Pain Level 0 O2 % BldC Oximetry 98 % BMI (Body Mass Index) 31.8 kg/m2 Results Description No Information Available Procedures Date Code Description Status 08/12/2018 73625 EKG, Interpretation Only Completed 08/10/2018 94388 TKR Total Knee Replacement Completed 08/10/2018 49578 TKR Total Knee Replacement Completed 08/10/2018 53237 TKR Total Knee Replacement Completed Medical Devices Description No Information Available Encounters Type Date Location Provider Dx Diagnosis Office Visit 12/04/2018 [facility] Joe Buchanan Z47.1 Aftercare following 3:15p at [facility] Couch MD joint replacement surgery M17.12 Unilateral primary osteoarthritis, left knee Z96.652 Presence of left artificial knee joint Office Visit 11/12/2018 [facility] Joe Buchanan M17.12 Unilateral primary 2:45p Orthopedics at MD Iza osteoarthritis, left [place] knee Z47.1 Aftercare following joint replacement surgery Z96.652 Presence of left artificial knee joint Office Visit 08/14/2018 10:22a [facility] R00.0 Tachycardia, Assoc,pc Henrique, D.O. unspecified Hospitalists I10 Essential (primary) hypertension [facility], Assoc,pc Henrique, D.O. unspecified Hospitalists I10 Essential (primary) hypertension Office Visit 08/12/2018 [facility] Dianne R00.0 Tachycardia, 10:21a Assoc,gale De La Rosa NP unspecified Hospitalists I10 Essential (primary) hypertension Assessments Date Code Description Provider 02/04/2019 Z47.1 Aftercare following joint replacement Joe Couch MD surgery 02/04/2019 M17.12 Unilateral primary osteoarthritis, Joe Couch MD left knee 02/04/2019 Z96.652 Presence of left artificial knee joint Joe Couch MD 12/04/2018 Z47.1 Aftercare following joint replacement Joe Couch MD surgery 12/04/2018 M17.12 Unilateral primary osteoarthritis, Joe Couch MD left knee 12/04/2018 Z96.652 Presence of left artificial knee joint Joe Couch MD 11/12/2018 M17.12 Unilateral primary osteoarthritis, Joe Couch MD left knee 11/12/2018 Z47.1 Aftercare following joint replacement Joe Couch MD surgery 11/12/2018 Z96.652 Presence of left artificial knee joint Joe Couch MD 10/22/2018 M17.12 Unilateral primary osteoarthritis, Joe Couch MD left knee 10/22/2018 Z47.1 Aftercare following joint replacement Joe Couch MD surgery 10/22/2018 Z96.652 Presence of left artificial knee joint Joe Couch MD 09/27/2018 M17.12 Unilateral primary osteoarthritis, Joe Couch MD left knee 09/27/2018 Z47.1 Aftercare following joint replacement Joe Couch MD surgery 09/27/2018 Z96.652 Presence of left artificial knee joint Joe Couch MD 09/13/2018 M17.12 Unilateral primary osteoarthritis, Joe Couch MD left knee 09/13/2018 Z47.1 Aftercare following joint replacement Joe Couch MD surgery 09/13/2018 Z96.652 Presence of left artificial knee joint Joe Couch MD 08/30/2018 M17.12 Unilateral primary osteoarthritis, Joe Couch MD left knee 08/30/2018 Z47.1 Aftercare following joint replacement Joe Couch MD surgery 08/30/2018 M25.562 Pain in left knee Joe Couch MD 08/30/2018 Z96.652 Presence of left artificial knee joint Joe Couch MD 08/20/2018 M17.12 Unilateral primary osteoarthritis, Joe Couch MD left knee 08/20/2018 M25.562 Pain in left knee Joe Couch MD 08/20/2018 Z47.1 Aftercare following joint replacement Joe Couch MD surgery 08/20/2018 Z96.652 Presence of left artificial knee joint Joe Couch MD 08/15/2018 M17.12 Unilateral primary osteoarthritis, MOHINDER Damon left knee 08/15/2018 M25.562 Pain in left knee MOHINDER Damon 08/15/2018 Z47.1 Aftercare following joint replacement Vicky B MOHINDER Klein surgery 08/15/2018 Z96.652 Presence of left artificial knee joint Vicky B MOHINDER Klein 08/14/2018 Z47.1 Aftercare following joint replacement MOHINDER Nava surgery 08/14/2018 R00.0 Tachycardia, unspecified Annette Duenas, D.O. 08/14/2018 Z96.652 Presence of left artificial knee joint MOHINDER Nava 08/14/2018 I10 Essential (primary) hypertension Annette Duenas D.O. 08/13/2018 Z47.1 Aftercare following joint replacement MOHINDER Nava surgery 08/13/2018 R00.0 Tachycardia, unspecified Annette Duenas D.O. 08/13/2018 Z96.652 Presence of left artificial knee joint MOHINDER Nava 08/13/2018 I10 Essential (primary) hypertension Annette Duenas D.O. 08/12/2018 R94.31 Abnormal electrocardiogram [ECG] [EKG] Asher Alfredo M.D., [facility] 08/12/2018 R00.0 Tachycardia, unspecified Dianne De La Rosa, [employer] 08/12/2018 Z47.1 Aftercare following joint replacement Joe Couch MD surgery 08/12/2018 I10 Essential (primary) hypertension Dianne De La Rosa, [employer] 08/12/2018 Z96.652 Presence of left artificial knee joint Joe Couch MD 08/11/2018 Z47.1 Aftercare following joint replacement Joe Couch MD surgery 08/11/2018 Z96.652 Presence of left artificial knee joint Joe Couch MD 08/10/2018 M17.12 Unilateral primary osteoarthritis, Joe Couch MD left knee 08/10/2018 M17.12 Unilateral primary osteoarthritis, MOHINDER Du-C left knee Plan of Treatment 02/04/2019 - Joe Couch MDZ47.1 Aftercare following joint replacement surgeryFollow up:Follow up: July 2019 with ctfesC83.12 Unilateral primary osteoarthritis, left kneeZ96.652 Presence of left artificial knee joint Functional Status Description No Information Available Mental Status Description No Information Available Referrals Description No Information Available
--- OUTSIDE RECORDS SUMMARY | 2019-03-25 16:36 | XMS REPORT | Continuity of Care Document ---
:1945 External Reference #:[id number] Author Name Sandra Mendosa MD Address [address] [place] [address] Problems Active Problems Provider Date Essential hypertension Ramiro Seymour D.O. Onset: 11/02/2015 Atrophic vaginitis Ramiro Seymour D.O. Onset: 11/02/2015 Gastroesophageal reflux disease Ramiro Seymour D.O. Onset: 11/02/2015 Allergic rhinitis Ramiro Seymour D.O. Onset: 11/02/2015 Primary osteoporosis Ramiro Seymour D.O. Onset: 11/02/2015 Urinary incontinence Ramiro Seymour D.O. Onset: 11/02/2015 Uterovaginal prolapse Ramiro Seymour D.O. Onset: 11/02/2015 Vitamin D deficiency Ramiro Seymour D.O. Onset: 06/07/2017 Impaired fasting glycaemia Leela Kirkpatrick PA Onset: 01/17/2018 Disorder of bone Leela Kirkpatrikc PA Onset: 01/17/2018 Hyperlipidemia Leela Kirkpatrick PA Onset: 01/17/2018 Social History Type Date Description Comments Sex Unknown Tobacco Use Start: Unknown Denies Cigarette Use ETOH Use Denies alcohol use Tobacco Use Start: Unknown Patient has never smoked Recreational Drug Use Denies Drug Use Smoking Status Reviewed: 01/28/19 Patient has never smoked Exercise Type/Frequency Exercises regularly Sun Exposure Uses sunscreen Seat Belt/Car Seat Seat Belt Use - Yes Guns in Home No Smoke Alarms Yes smoke alarm Allergies, Adverse Reactions, Alerts Active Allergies Reaction Severity Comments Date Penicillins 11/02/2015 Sulfa 11/02/2015 Lactase 11/02/2015 artificial sweetener makes legs feel numb Moderate 12/05/2016 Medications Active Medications SIG Qnty Indications Ordering Date [facility]atorful pv 340.2gm Silco, 03/20/2019 0.025-0.01% twice a week Boni Block Gel Clindamycin HCL 2 tabs by mouth 1 2caps Silcomagdalena, 10/29/2018 300mg hour prior to dental Boni Block Capsules procedure Milex Coloplast Misc 1units N81.11 Silcomagdalena, 06/25/2018 R200S Silicone Boni Block Pessary Ring, Size 3 Fosamax 1 tab by mouth 4tabs M81.0 Tripp, 01/31/2018 70mg Tablets weekly for Boni Block osteoporosis Vitamin D 1 cap by mouth 12caps Tripp, 01/18/2018 (Ergocalciferol) weekly for 12 weeks Boni Block 46650Kwte Capsules Vitamin D-3 1 tab by mouth every 90tabs E55.9 Ramiro Seymour, 06/07/2017 5000Unit day or 7 tabs once a D.O. Tablets week Neti Pot Kit Sinus use as directed 1units J01.00 Ramiro Seymour, 2017 Wash/Clear View D.O. Kettle 2300-700mg Kit Amitriptyline HCL Take One Tablet By 90tabs Ramiro Seymour, 06/07/2017 Mouth AT Bedtime D.O. 10mg Tablets Patanol 1 drops both eyes 5ml R32 Tripp, 11/02/2015 0.1% Solution twice a day as Boni Block needed J30.9 Vitamin B Complex 1 by mouth once Unknown 11/01/2015 Tablets daily Mineral Pill as directed Unknown 11/01/2015 Multivitamin Adult 1 by mouth every day Unknown 11/01/2015 Tablets Zyrtec Allergy 1 by mouth every day Unknown 11/01/2015 10mg Tablets as needed Dexilant take one capsule by 180caps K21.9 Umair Almaguer, 11/01/[address] mouth twice a day M.DSandip Vagifem insert 1 tablet 30tabs N81.2 Umair Almaguer, 11/01/2015 10mcg Tablets vaginally twice a M.D. week (monday,) N95.2 Ranitidine HCL Take One Tablet By 90tabs K21.9 Ramiro Seymour, 11/01/2015 300mg Mouth AT Bedtime D.O. Tablets Amlodipine Besylate Take One Tablet By 90tabs I10 Ramiro Seymour, 2015 10mg Mouth Every Day For D.O. Tablets High Blood Pressure Quinapril HCL Take One Tablet By 90tabs I10 Ramiro Seymour, 11/01/2015 40mg Tablets Mouth Every Day For D.O. Blood Pressure Borage Oil as directed Unknown 11/01/2015 1000mg Capsules Fish Oil as directed Unknown 11/01/2015 Capsules Flax Seed Oil as directed Unknown 11/01/2015 1000mg Capsules Vitamin E as directed Unknown 11/01/2015 350mg Capsules Joint Care as directed Unknown 11/01/2015 (Glucosamine, MSM, Chondroitin) Magnesium Calcium Zinc as directed Unknown 11/01/2015 [place] Brink as directed Unknown 11/01/2015 500mg Capsules Restasis instill 1 drop into Unknown 11/01/2015 0.05% Emulsion both eyes every 12 hours for dry eyes Fluticasone Propionate 2 sprays into each 47.4ml J30.9 Ramiro Seymour, nostril every day D.O. 50mcg/Act Suspension for nasal congestion. trevon allergies. rinse mouth post as needed Hydroxyzine HCL 1 qhs Unknown 25mg Tablets History Medications Ciclopirox apply to adjacent 34.600ml L60.8 Umair Almaguer, 11/29/2018 - Treatment skin and affected M.D. 03/24/2019 8% Kit nails daily. remove with alcohol every week Immunizations CPT Code Status Date Vaccine Lot # [id number] Given 01/22/2019 Shingrix Zoster (Shingles) Vaccine (HZV) Recomb,Subnit,Adjuvanted 68858 Given 01/03/2019 Influenza Vaccine, Inactivated, Subunit, [id number] Adjuvanted, For Intrmus 22327 Given 07/24/2018 Adacel or Boostrix, TDaP [id number] 98568 Given 01/17/2018 Influenza Vaccine, Inactivated, Subunit, [id number] Adjuvanted, For Intrmus 69473 Given 06/07/2017 Pneumococcal Immunization [id number] 76967 Given 12/05/2016 Zostavax [id number] 24922 Given 12/05/2016 Influenza Vaccine Split Virus Preservative Free Im [id number] Use (hi-dose) 78637 Given 04/25/2016 Prevnar 13 50725 Given 04/25/2016 Influenza Vaccine Split Virus Preservative Free Im Use (hi-dose) Vital Signs Date Vital Result Comment 03/25/2019 2:29pm BP Systolic 124 mmHg BP Diastolic 74 mmHg Body Temperature 97.8 F Weight 200.00 lb 01/22/2019 8:53am BP Systolic 128 mmHg BP Diastolic 78 mmHg Height 62.5 inches 5'2.50" Weight 199.00 lb BMI (Body Mass Index) 35.8 kg/m2 Results Test Acquired Date Facility Test Result H/L Range Note Comp Metabolic 01/22/2019 [facility] Sodium 140 mmol/L Normal 135- 145 Panel [phone] Potassium 4.5 mmol/L Normal 3.5-5.0 Chloride 104 mmol/L Normal 101-111 Co2 Carbon Dioxide 27 mmol/L Normal 22-32 Anion Gap 9 mmol/L Normal 2-11 Glucose 109 mg/dL High 70-100 Blood Urea Nitrogen 18 mg/dL Normal 6-24 Creatinine 0.80 mg/dL Normal 0.51-0.95 BUN/Creatinine Ratio 22.5 High 8-20 Calcium 9.8 mg/dL Normal 8.6-10.3 Total Protein 6.8 g/dL Normal 6.4-8.9 Albumin 4.7 g/dL Normal 3.2-5.2 Globulin 2.1 g/dL Normal 2-4 Albumin/Globulin Ratio 2.2 Normal 1-3 Total Bilirubin 0.60 mg/dL Normal 0.2-1.0 Alkaline Phosphatase 97 U/L Normal 34-104 Alt 31 U/L Normal 7-52 Ast 26 U/L Normal 13-39 Egfr Non- 70.1 >60 Egfr 84.8 >60 1 Lipid Profile (Trig/Chol/HDL) 01/22/2019 [facility] Triglycerides 138 mg/dL 2 [phone] Cholesterol 244 mg/dL 3 HDL Cholesterol 57.6 mg/dL 4 LDL Cholesterol 159 mg/dL 5 Laboratory test 01/22/2019 [facility] Hemoglobin A1c 5.7 % High 4.0- 5.6 6 finding [phone] (Glyco HGB) Urinalysis Profile 01/22/2019 [facility] Urine Color Yellow [phone] Urine Appearance Turbid Urine Specific [place] 1.026 Normal 1.010-1.030 Urine pH 5.0 Normal 5-9 Urine Urobilinogen Negative Negative Urine Ketones Negative Negative Urine Protein Negative Negative Urine Leukocytes Negative Negative Urine Blood Negative Negative Urine Nitrite Negative Negative Urine Bilirubin Negative Negative Urine Glucose Negative Negative Laboratory test 11/29/2018 [facility] TSH (Thyroid 2.27 mcIU/mL Normal 0.34-5.60 finding [phone] Stim Horm) 1 Because ethnic data is not always readily available, this report includes an eGFR for both -Americans and non- Americans. The National Kidney Disease Education Program (NKDEP) does not endorse the use of the MDRD equation for patients that are not between the ages of 18 and 70, are , have extremes of body size, muscle mass, or nutritional status, or are non- or non-. According to the National Kidney Foundation, irrespective of diagnosis, the stage of the disease is based on the level of kidney function: Stage Description GFR(mL/min/1.73 m(2)) 1 Kidney damage with normal or decreased GFR 90 2 Kidney damage with mild decrease in GFR 60-89 3 Moderate decrease in GFR 30-59 4 Severe decrease in GFR 15-29 5 Kidney failure <15 (or dialysis) 2 Desirable: <150 Borderline High: 150-199 High: 200-499 Very High: >500 3 Desirable: <200 Borderline High: 200-239 High: >239 4 Low: <40 Desirable: 40-60 High: >60 5 Desirable: <100 Near Optimal: 100-129 Borderline High: 130-159 High: 160-189 Very High: >189 6 Therapeutic target for the treatment of diabetes mellitus patients is <7% HBA1C, and in selective patients <6.0%. Please refer to [place] [employer] diabetic care guidelines for further information. Procedures Date Code Description Status 01/28/2019 50623305 Mammogram Completed 05/22/2018 11950260 Colonoscopy Completed Medical Devices Description No Information Available Encounters Type Date Location Provider Dx Diagnosis Office Visit 03/25/2019 Main Office Deondre, Sandra L, R10.11 Right upper quadrant 2:30p pain Office Visit 01/03/2019 Main Office Peg Jordan I80.02 Phlebitis and 1:00p P.A. thombophlb of superfic vessels of l low extrem Z23 Encounter for immunization Z96.652 Presence of left artificial knee joint Office Visit 11/29/2018 11:00a Main Office Peg Jordan, L60.8 Other nail P.A. disorders R63.5 Abnormal weight gain I10 Essential (primary) hypertension Assessments Date Code Description Provider 03/25/2019 R10.11 Right upper quadrant pain Sandra Mendosa MD 01/22/2019 Z00.00 Encounter for general adult medical Leela Kirkpatrick PA examination without abnormal findings 01/22/2019 Z96.652 Presence of left artificial knee joint Leela Kirkpatrick PA 01/22/2019 I10 Essential (primary) hypertension Leela Kirkpatrick PA 01/22/2019 M81.0 Age-related osteoporosis without current Leela Kirkpatrick PA pathological fractu 01/22/2019 E78.5 Hyperlipidemia, unspecified Leela Kirkpatrick PA 01/22/2019 Z68.35 Body mass index (BMI) 35.0-35.9, adult Leela Kirkpatrick PA 01/03/2019 I80.02 Phlebitis and thrombophlebitis of superficial Peg Arreolale, P.A. vessels of left lower extremity 01/03/2019 Z23 Encounter for immunization Peg Jordan P.A. 01/03/2019 Z96.652 Presence of left artificial knee joint Peg Jordan, P.A. 11/29/2018 L60.8 Other nail disorders Pge Jordan, P.A. 11/29/2018 R63.5 Abnormal weight gain Peg Jordan, P.A. 11/29/2018 I10 Essential (primary) hypertension Peg Jordan, P.A. Plan of Treatment Future Appointment(s):01/28/2020 10:05 am - Leela Kirkpatrick PA at Main Ez[facility]ul6411/2018 - Leela Kirkpatrick PAZ00.00 Encounter for general adult medical examination without abnormal findingsComments:73 year old female. Screening updated.Z96.652 Presence of left artificial knee jointComments:f/u w orthopedic surgeon as directed.I10 Essential (primary) hypertensionComments:Good control on current meds, continue same.M81.0 Age-related osteoporosis without current pathological fractuComments:Continue fosamax for now. Pt was on prolia in the past. Not due to recheck DEXA yet.E78.5 Hyperlipidemia, unspecifiedComments: Will recheck lipids. Pt has been unable to tolerate any statins in the past. She will continue current supplements and lowering fats in diet.Z68.35 Body mass index (BMI) 35.0-35.9, adult Functional Status Description No Information Available Mental Status Description No Information Available Referrals Description No Information Available
[2019-03-25 17:59] VITALS: BP 143/74
[2019-03-25 18:09] LABS: ABS Basophils 0.1 10^3/ul (0-0.2); ABS Eosinophils 0.1 10^3/ul (0-0.6); ABS Lymphocytes 1.6 10^3/ul (1.0-4.8); Eosinophil % 1.2 %; Hematocrit 47 % (35-47); Hemoglobin 16.4 g/dL (12.0-16.0); Lymphocyte % 17.7 %; Mean Corpuscular HGB Conc 35 g/dL (31-36); Mean Corpuscular Hemoglobin 31 pg (27-31); Mean Corpuscular Volume 88 fL (80-97); Mean Platelet Volume 7.8 fL (7.4-10.4); Platelet Count 329 10^3/uL (150-450); Red Blood Count 5.33 10^6 /uL (3.70-4.87); Red Cell Distribution Width 13 % (10-15); White Blood Count 8.9 10^3/uL (3.5-10.8)
[2019-03-25 18:29] LABS: Albumin 4.8 g/dL (3.2-5.2); Albumin/Globulin Ratio 1.5 (1-3); BUN/Creatinine Ratio 12.5 (8-20); C Reactive Protein 8.66 mg/L (<8.01); Calcium 10.4 mg/dL (8.6-10.3); EGFR African American 95.8 (>60); EGFR Non-African American 79.2 (>60); Globulin 3.2 g/dL (2-4); Potassium 4.3 mmol/L (3.5-5.0); Total Bilirubin 0.4 mg/dL (0.2-1.0)
--- NOTE | 2019-03-25 19:12 | ED ---
Abdominal Pain/Female - HPI Summary HPI Summary: Pt is a 73 y/o F presenting to the ED with a chief complaint of abd pain initially onset about 9 days ago in the RUQ. She states its accompanied by nausea that comes on after eating. She went to her PCP today who thought it may be her gallbladder. She denies vomiting, diarrhea, constipation, urinary symptoms, or chest pain. - History of Current Complaint Chief Complaint: EDAbdPain Stated Complaint: UPPER ABD PAIN PER PT Time Seen by Provider: 03/25/19 19:07 Hx Obtained From: Patient Hx Last Menstrual Period: N/A Onset/Duration: Gradual Onset, Lasting Days, Still Present Timing: Hours Severity Initially: Mild Severity Currently: Mild Pain Intensity: 2 Pain Scale Used: 0-10 Numeric Location: Discrete At: RUQ Radiates: Yes Radiates to: Back Aggravating Factor(s): Food Alleviating Factor(s): Nothing Associated Signs and Symptoms: Positive: Back Pain, Nausea. Negative: Chest Pain, Constipation, Urinary Symptoms, Vomiting, Diarrhea Allergies/Adverse Reactions: Allergies Allergy/AdvReac Type Severity Reaction Status Date / Time lactose Allergy Severe Diarrhea Verified 03/25/19 16:02 Penicillins Allergy Severe Hives Verified 03/25/19 16:02 Sulfa (Sulfonamide Allergy Severe GI Upset Verified 03/25/19 16:02 Antibiotics) PMH/Surg Hx/FS Hx/Imm Hx Previously Healthy: Yes Endocrine/Hematology History: Denies: Hx Diabetes Cardiovascular History: Reports: Hx Hypertension, Other Cardiovascular Problems/ Disorders - HCL Respiratory History: Reports: Other Respiratory Problems/Disorders - allergic rhinitis GI History: Reports: Hx Gastroesophageal Reflux Disease, Hx Ulcer - DUODENAL, Other GI Disorders - lactose intolerant- diarrhea History: Denies: Hx Kidney Stones, Hx Renal Disease Musculoskeletal History: Reports: Hx Arthritis - L KNEE Sensory History: Reports: Hx Contacts or Glasses Denies: Hx Hearing Aid Opthamlomology History: Reports: Hx Contacts or Glasses Neurological History: Denies: Hx Dementia, Hx Seizures, Hx Transient Ischemic Attacks (TIA) Psychiatric History: Reports: Hx Anxiety - Cancer History Cancer Type, 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 Hx Chemotherapy: No - Surgical History Surgery Procedure, Year, and Place: apendectomy 1991, hysterectomy 1985, left TKA-2019, hernia repair Hx Anesthesia Reactions: No Infectious Disease History: No Infectious Disease History: Denies: Traveled Outside the [place] in Last 30 Days - Family History Known Family History: Positive: Cardiac Disease - Father Negative: Seizure Disorder Family History: Mother with Alzheimer's - Social History Alcohol Use: None Hx Substance Use: No Substance Use Type: Reports: None Hx Tobacco Use: No Smoking Status (MU): Never Smoked Tobacco Have You Smoked in the Last Year: No Review of Systems Negative: Chest Pain Positive: Abdominal Pain, Nausea. Negative: Vomiting, Diarrhea, Other - constipation Positive: no symptoms reported Positive: Myalgia - slight lower back pain All Other Systems Reviewed And Are Negative: Yes Physical Exam - Summary Physical Exam Summary: Appearance: Well-appearing, Well-nourished, lying in bed comfortably Skin: Warm, dry, no obvious rash Eyes: sclera anicteric, no conjunctival pallor ENT: mucous membranes moist, pharynx appears normal Neck: Supple, nontender Respiratory: Clear to auscultation, no signs of respiratory distress Cardiovascular: Normal S1, S2. No murmurs. Normal distal pulses in tibial and radial bilaterally. Abdomen: Soft, nontender, normal active bowel sounds present Musculoskeletal: Normal, Strength/ROM Intact Neurological: A&Ox3, awake and alert, mentation is normal, speech is fluent and appropriate Psychiatric: affect is normal, does not appear anxious or depressed Triage Information Reviewed: Yes Vital Signs On Initial Exam: Initial Vitals Temp Pulse Resp BP Pulse Ox 97.7 F 98 17 172/101 96 03/25/19 16:00 03/25/19 16:00 03/25/19 16:00 03/25/19 16:00 03/25/19 16:00 Vital Signs Reviewed: Yes Procedures - Sedation Patient Received Moderate/Deep Sedation with Procedure: No Diagnostics - Vital Signs Vital Signs Temp Pulse Resp BP Pulse Ox 03/25/19 17:58 98.0 F 86 20 143/74 96 03/25/19 16:00 97.7 F 98 17 172/101 96 - Laboratory Lab Results: Lab Results 03/25/19 03/25/19 03/25/19 Range/Units 18:02 18:02 18:02 WBC 8.9 (3.5-10.8) 10^3/uL RBC 5.33 H (3.70-4.87) 10^6 /uL Hgb 16.4 H (12.0-16.0) g/dL Hct 47 (35-47) % MCV 88 (80-97) fL MCH 31 (27-31) pg MCHC 35 (31-36) g/dL RDW 13 (10-15) % Plt Count 329 (150-450) 10^3/uL MPV 7.8 (7.4-10.4) fL Neut % (Auto) 68.0 % Lymph % (Auto) 17.7 % Bacon % (Auto) 11.8 % Eos % (Auto) 1.2 % Baso % (Auto) 1.3 % Absolute Neuts (auto) 6.0 (1.5-7.7) 10^3/ul Absolute Lymphs (auto) 1.6 (1.0-4.8) 10^3/ul Absolute Monos (auto) 1.0 H (0-0.8) 10^3/ul Absolute Eos (auto) 0.1 (0-0.6) 10^3/ul Absolute Basos (auto) 0.1 (0-0.2) 10^3/ul Absolute Nucleated RBC 0.0 10^3/ul Nucleated RBC % 0.0 Sodium 139 (135-145) mmol/L Potassium 4.3 (3.5-5.0) mmol/L Chloride 103 (101-111) mmol/L Carbon Dioxide 29 (22-32) mmol/L Anion Gap 7 (2-11) mmol/L BUN 9 (6-24) mg/dL Creatinine 0.72 (0.51-0.95) mg/dL Est GFR ( Amer) 95.8 (>60) Est GFR (Non-Af Amer) 79.2 (>60) BUN/Creatinine Ratio 12.5 (8-20) Glucose 108 H (70-100) mg/dL Lactic Acid 1.7 (0.5-2.0) mmol/L Calcium 10.4 H (8.6-10.3) mg/dL Total Bilirubin 0.40 (0.2-1.0) mg/dL AST 24 (13-39) U/L ALT 30 (7-52) U/L Alkaline Phosphatase 112 H (34-104) U/L C-Reactive Protein 8.66 H (<8.01) mg/L Total Protein 8.0 (6.4-8.9) g/dL Albumin 4.8 (3.2-5.2) g/dL Globulin 3.2 (2-4) g/dL Albumin/Globulin Ratio 1.5 (1-3) Lipase 11 (11.0-82.0) U/L Result Diagrams: 03/25/19 18:02 03/25/19 18:02 Lab Statement: Any lab studies that have been ordered have been reviewed, and results considered in the medical decision making process. - Ultrasound Gallbladder US Ultrasound Interpretation Completed By: Radiologist Summary of Ultrasound Findings: 1. NO SONOGRAPHIC EVIDENCE OF GALLSTONES OR ACUTE CHOLECYSTITIS. 2. POSSIBLE HEPATIC STEATOSIS. ED physician has reviewed this report. Abdominal Pain Fem Course/Dx - Course Course Of Treatment: Pt is a 73 y/o F presenting to the ED with a chief complaint of abd pain initially onset about 9 days ago in the RUQ. She also notes nausea. She denies vomiting, diarrhea, constipation, urinary symptoms, or chest pain. Hx GERD and diverticulitis. Pt's physical exam is nml. Gallbladder US shows: 1. NO SONOGRAPHIC EVIDENCE OF GALLSTONES OR ACUTE CHOLECYSTITIS. 2. POSSIBLE HEPATIC STEATOSIS. Pt will be discharged with instructions to f/u with her GI doc. She is stable and agreeable with this plan. Dx abd pain. - Diagnoses Provider Diagnoses: Abdominal pain Discharge ED - Sign-Out/Discharge Documenting (check all that apply): Patient Departure - Discharge Plan Condition: Good Disposition: HOME Patient Education Materials: Acute Abdominal Pain (ED) Referrals: Ramiro Seymour DO [Primary Care Provider] - Additional Instructions: The tests we did here tonight did not show any sign of a problem in the gall bladder, nor any sign of a serious other type of problem. I think your next step should be going to see your macaroni maker for further testing and evaluation. They may want to schedule you for an endoscopy to look for ulcer disease or some other type of problem in the stomach or small intestine. - Billing Disposition and Condition Condition: GOOD Disposition: Home - Attestation Statements Document Initiated by Scribe: Yes Documenting Scribe: Alicia Irving Provider For Whom Yuly is Documenting (Include Credential): Alfred Adler MD. Scribe Attestation: I, Alicia Irving, scribed for Alfred Adler MD. on 03/26/19 at 0618. Scribe Documentation Reviewed: Yes Provider Attestation: The documentation as recorded by the scribe, Alicia Irving accurately reflects the service I personally performed and the decisions made by me, Alfred Adler MD. Status of Scribe Document: Viewed
== END 2019-03-25 19:56 | disposition home or self-care (01) ==
LOC: ED 15:54
DX: R10.9 Unspecified abdominal pain (principal); I10 Essential (primary) hypertension; K21.9 Gastro-esophageal reflux disease without esophagitis; F41.9 Anxiety disorder, unspecified; Z85.828 Personal history of other malignant neoplasm of skin; Z90.710 Acquired absence of both cervix and uterus; Z96.652 Presence of left artificial knee joint; Z90.89 Acquired absence of other organs; Z88.0 Allergy status to penicillin; Z88.2 Allergy status to sulfonamides
CPT/HCPCS: 36415; 76705; 80053; 83605; 83690; 85025; 86140; 99283

== ENCOUNTER 2019-05-01 11:16 | Day surgery (SDC) | payer MEDICARE ==
[~2019-05-01 11:16] MED LIST changes: +Acetaminophen TAB* 325 MG PO PRN; -Bupivacaine 0.25% EPI 200,000* 30 ML SDV ONE; -Clindamycin 900 MG IVPREMIX(* 900 MG/50 ML SDV IV ONE; -Lactated Ringers 1000 ML Bag* 1,000 ML IV SCH; -Tranexamic Acid 1,000 MG in NS 0.9% 50 ML* (outpatient use) IV SCH
[2019-05-01] MEDS ORDERED: Midazolam* 1 MG/ML 2 ML VIAL (2 MG) ONE ×2 (13:30→13:52)
[2019-05-01 14:34] VITALS: BP 126/72
[2019-05-01] MEDS ORDERED: acetaZOLAMIDE TAB* 250 MG ONE (15:08)
[2019-05-01] MEDS ORDERED: Povidone Iodine 5% OPTH* 30 ML BTL ONE (15:08)
[2019-05-01] MEDS ORDERED: Cyclopentolate 1% OPTH.SOL* 2 ML BTL ONE (15:08)
[2019-05-01] MEDS ORDERED: Lidocaine 1% MPF ** 5 ML VIAL ONE (15:08)
[2019-05-01] MEDS ORDERED: Ketorolac 0.5% OPHTH (NF) 0.5 % 5 ML BTL ONE (15:08)
[2019-05-01] MEDS ORDERED: Phenylephrine OPHTH SOL 2.5%* 2 ML ONE (15:08)
[2019-05-01] MEDS ORDERED: Proparacaine 0.5% OPHTH.SOL* 15 ML BTL ONE (15:08)
[2019-05-01] MEDS ORDERED: Neomycin/Polymy/Dex OPTH.SUSP* MAXITROL 0.1% 5 ML ONE (15:08)
[2019-05-01] MEDS ORDERED: Lidocaine 2% w/ EPI 1:200,000* 20 ML SDV VIAL ONE (15:08)
--- NOTE | 2019-05-01 22:51 | OP ---
DATE OF OPERATION: 05/01/19 [facility] DATE OF : 43 SURGEON: Benito Hernandez M.D. PREOPERATIVE DIAGNOSIS: Cataract, right eye. POSTOPERATIVE DIAGNOSIS: Cataract, right eye. OPERATIVE PROCEDURE: Extracapsular cataract extraction with intraocular lens implant right eye. DESCRIPTION OF PROCEDURE: The patient was brought to the operating room after being given 1/2% Alcaine with epinephrine drops in the preoperative area. The eye was prepped and draped in the usual sterile fashion. Sterile drape and eyelid speculum were placed. Again, topical 1/2% Alcaine with epinephrine was given. A paracentesis incision was made at the 9 o'clock position with the No.75 blade. Clear cornea incision 2.2 x 2.2-mm was created at the 12 o'clock position starting at the anterior limbus using the 2.2-mm keratome. The anterior chamber was irrigated with 0.4 mL of 1% non-preservative intracameral lidocaine and filled with DisCoVisc. A capsulorrhexis was completed using the cystotome and the Utrata forceps. Hydrodissection was performed with balanced salt solution. The lens nucleus was removed with the Phacoemulsification handpiece without incident. Cortex was removed with the irrigation-aspiration handpiece. The capsular bag was re-inflated using DisCoVisc and an [id number] implant was inserted with the shooter. The irrigation-aspiration handpiece was used to remove all residual DisCoVisc. The eye was refilled with balanced salt solution and the wound checked and found to be watertight. Topical Maxitrol drops were given. [id number]/[facility] #: [id number] [facility]
== END 2019-05-01 14:30 | disposition home or self-care (01) ==
LOC: OREAST 11:16
PROVIDERS: ATTEND Specialist
DX: H25.811 Combined forms of age-related cataract, right eye (principal); H40.053 Ocular hypertension, bilateral; Z83.511 Family history of glaucoma; Z88.0 Allergy status to penicillin; I10 Essential (primary) hypertension; M81.0 Age-related osteoporosis without current pathological fracture; K21.9 Gastro-esophageal reflux disease without esophagitis; M19.90 Unspecified osteoarthritis, unspecified site; E78.5 Hyperlipidemia, unspecified
CPT/HCPCS: A9270-GY; J2250; V2632

== ENCOUNTER 2019-05-08 09:27 | Day surgery (SDC) | payer MEDICARE ==
[2019-05-08] MEDS ORDERED: Midazolam* 1 MG/ML 5 ML VIAL (5 MG) ONE (10:37)
[2019-05-08] MEDS ORDERED: fentaNYL* 50 MCG/ML 2 ML VIAL (100 MCG VIAL) ONE (10:37)
[2019-05-08 11:50] VITALS: BP 126/72
[2019-05-08] MEDS ORDERED: Proparacaine 0.5% OPHTH.SOL* 15 ML BTL ONE (13:58)
[2019-05-08] MEDS ORDERED: acetaZOLAMIDE TAB* 250 MG ONE (13:58)
[2019-05-08] MEDS ORDERED: Lidocaine 2% w/ EPI 1:200,000* 20 ML SDV VIAL ONE (13:58)
[2019-05-08] MEDS ORDERED: Phenylephrine OPHTH SOL 2.5%* 2 ML ONE (13:58)
[2019-05-08] MEDS ORDERED: Lidocaine 1% MPF ** 5 ML VIAL ONE (13:58)
[2019-05-08] MEDS ORDERED: Neomycin/Polymy/Dex OPTH.SUSP* MAXITROL 0.1% 5 ML ONE (13:58)
[2019-05-08] MEDS ORDERED: Cyclopentolate 1% OPTH.SOL* 2 ML BTL ONE (13:58)
[2019-05-08] MEDS ORDERED: Ketorolac 0.5% OPHTH (NF) 0.5 % 5 ML BTL ONE (13:58)
--- NOTE | 2019-05-08 18:33 | OP ---
DATE OF OPERATION: 05/08/19 [facility] DATE OF : 43 SURGEON: Benito Hernandez M.D. PREOPERATIVE DIAGNOSIS: Cataract, left eye. POSTOPERATIVE DIAGNOSIS: Cataract, left eye. OPERATIVE PROCEDURE: Extracapsular cataract extraction with intraocular lens implant left eye. DESCRIPTION OF PROCEDURE: The patient was brought to the operating room after being given 1/2% Alcaine with epinephrine drops in the preoperative area. The eye was prepped and draped in the usual sterile fashion. Sterile drape and eyelid speculum were placed. Again, topical 1/2% Alcaine with epinephrine was given. A paracentesis incision was made at the 3 o'clock position with the No.75 blade. Clear cornea incision 2.2 x 2.2-mm was created at the 6 o'clock position starting at the anterior limbus using the 2.2-mm keratome. The anterior chamber was irrigated with 0.4 mL of 1% non-preservative intracameral lidocaine and filled with DisCoVisc. A capsulorrhexis was completed using the cystotome and the Utrata forceps. Hydrodissection was performed with balanced salt solution. The lens nucleus was removed with the Phacoemulsification handpiece without incident. Cortex was removed with the irrigation-aspiration handpiece. The capsular bag was re-inflated using DisCoVisc and an [id number] implant was inserted with the shooter. The irrigation-aspiration handpiece was used to remove all residual DisCoVisc. The eye was refilled with balanced salt solution and the wound checked and found to be watertight. Topical Maxitrol drops were given. [id number]/[facility] #: [id number] [facility]
== END 2019-05-08 12:06 | disposition home or self-care (01) ==
LOC: OREAST 09:27
PROVIDERS: ATTEND Specialist
DX: H25.812 Combined forms of age-related cataract, left eye (principal); I10 Essential (primary) hypertension; H40.053 Ocular hypertension, bilateral; Z83.511 Family history of glaucoma; Z88.0 Allergy status to penicillin; M81.0 Age-related osteoporosis without current pathological fracture; K21.9 Gastro-esophageal reflux disease without esophagitis
CPT/HCPCS: A9270-GY; J2250; J3010; V2632